=== PATIENT | female | born 1970 | race Caucasian/White ===

== ENCOUNTER → 2019-05-11 11:25 | Outpatient (BNVA) | payer SELFPAY | PROVIDERS: Family Provider Family Medicine; PCP Family Medicine; Visit Provider Family Medicine | DX: R60.0 Localized edema (principal); R53.83 Other fatigue | CPT/HCPCS: 80053; 84443 ==

== ENCOUNTER 2019-08-07 09:53 | Emergency (ER) | payer SELFPAY ==
--- NOTE | 2019-08-07 10:11 | W.ED.GENADLT ---
HPI - General Adult General: Chief complaint: Chest Pain Stated complaint: JAW PAIN, TIRED Time Seen by Provider: 08/07/19 10:00 Source: patient Mode of arrival: EMS Limitations: no limitations History of Present Illness: HPI narrative: sudden onset jaw pain; chest pressure, and feeling tired Onset (ago): hour(s) (1 hour) Severity scale (1-10): 9 Associated symptoms: Reports palpitations Review of Systems General: Reports: 10 or more systems reviewed and unremarkable except in HPI and below Const: Denies: fever(s) or body aches Card: Reports: palpitations PFS ED PFSH: Medical History Anxiety and depression Chronic GERD Essential hypertension Hyperlipidemia Statin intolerance Surgical History H/O knee surgery History of appendectomy Family History Other Adopted Social History Smoking and tobacco status: never smoked Alcohol intake: never Physical Exam Const: COMMON NORMALS: no acute distress, patient oriented x3, no limitations and alert GENERAL APPEARANCE: cooperative and comfortable ORIENTATION/CONSCIOUSNESS: Yes awake, Yes oriented to person, Yes oriented to place and Yes oriented to time HENMT: COMMON NORMALS: normocephalic, atraumatic, external ears normal, EAC's normal, TM's normal bilaterally and Normal external nose present HEAD & SCALP: normal to inspection, normocephalic and atraumatic FACE & SINUS: normal facial exam, sinuses nontender and face symmetric NOSE: Normal external nose present, Normal nares present and No nasal discharge present EXTERNAL EAR: Yes external ears normal EXTERNAL AUDITORY CANAL: EAC's normal TYMPANIC MEMBRANE: TM's normal bilaterally MOUTH: Normal oral and palatal mucosa present, lip normal and tongue normal THROAT: posterior oropharynx normal, tonsils normal and uvula midline Eye: COMMON NORMALS: Equal, round and reactive pupils present, EOMs intact bilaterally and conjunctivae normal GENERAL EYE: appearance normal, both eyes and all related structures and normal light reflex EYELID: eyelids normal CONJUNCTIVA: Yes conjunctivae normal PUPIL: Yes Equal, round and reactive pupils present EOM: Yes EOM abnormal DIRECT OPHTHALMOSCOPY: Yes normal light reflex Neck/C-Spine: COMMON NORMALS: full ROM, no lymphadenopathy, supple, no meningeal signs, no JVD and Thyroid normal GENERAL: Yes normal visual inspection THYROID: Thyroid normal CERVICAL SPINE: Yes cervical ROM normal and Yes normal cervical lordosis Lymph: LYMPHATIC: no lymphadenopathy noted Chest: COMMONS NORMALS: normal inspection of the chest and normal palpation of entire chest wall Resp: COMMON NORMALS: normal respiratory effort, No retractions and clear to auscultation bilaterally AUSCULTATION: clear to auscultation bilaterally Cardio: COMMON NORMALS: no JVD, regular rate, regular rhythm, S1 normal heart sound present, S2 normal heart sound present, No gallops present (Cardio), No clicks present (Cardio), No murmurs present (Cardio), No rub (Cardio) and Peripheral pulses 2+ throughout RATE: regular rate RHYTHM: regular rhythm HEART SOUNDS: S1 normal heart sound present and S2 normal heart sound present PERIPHERAL PULSES: Peripheral pulses 2+ throughout GI: COMMON NORMALS: Normal to inspection, nondistended, normoactive bowel sounds present, Soft to palpation, non-tender and no masses PALPATION: Yes Soft to palpation : COMMON NORMALS: Yes no CVA tenderness and Yes normal external appearance BLADDER/KIDNEY EXAM: Yes no CVA tenderness Back/Pelvis: COMMON NORMALS: no CVA tenderness, thoracic and lumbar spine normal to inspection, no thoracic nor lumbar tenderness and thoraco-lumbar ROM normal Extremity: COMMON NORMALS: normal to inspection, full ROM, capillary refill normal, no joint enlargement, no clubbing, cyanosis or edema, no calf tenderness and no pedal edema GENERAL: Yes normal exam except as noted Neuro: COMMON NORMALS: patient oriented x3, moves all extremities, no focal motor deficits, no sensory deficits noted and gait normal SENSORIUM/ORIENTATION: Yes alert, Yes oriented to person, Yes oriented to place and Yes oriented to time MENINGEAL SIGNS: Yes no meningeal signs Psych: COMMON NORMALS: mental status grossly normal, Normal thought process present, cooperative, normal affect, speech normal and activity/motor behavior normal SPEECH: Yes normal speech THOUGHT PROCESS: Normal thought process present Skin: COMMON NORMALS: no rashes or lesions noted, no wounds and turgor normal GENERAL SKIN EXAM: no rashes or lesions noted and turgor normal Course ED course: Pt states about 1 hour ago while opening her mail she had a sudden onset of jaw pain, chest pressure, and general ill feeling. The pain was at a 9/10 and after the initial pain that last 4 to 5 minutes, she felt very tired after. She still states she is feeling heavy all over and tired. Will do cardiac work up. Pt has been under more stress than normal with a divorce that was finalized 2 days ago and current times not allowing her children to be present. Reevaluation(s): Reevaluation #1: EKG unremarkable. CXR wnl. Awaiting first trop. Time: 11:42 Reevaluation #2: Second ekg is NSR; pain zero. Awaiting second trop. If normal we will proceed with DC and have follow up with heart care services. Time: 13:11 Reevaluation #3: Second trop is negative. Will proceed with DC. Follow up with PCP as well. Time: 13:55 Vital Signs: Vital signs: Vital Signs Temperature 98.2 F 08/07/19 10:12 Pulse Rate 81 08/07/19 11:40 Respiratory Rate 15 08/07/19 11:40 Blood Pressure 163/94 08/07/19 10:12 Pulse Oximetry 94 08/07/19 11:40 MDM - General Adult Lab Data: Labs: Lab Results 08/07/19 08/07/19 08/07/19 Range/Units 10:31 10:31 10:31 WBC 7.4 (4.0-10.0) 10^3/ uL RBC 4.71 (4.1-5.3) 10^6/u L Hgb 12.8 (11.5-15.3) g/dL Hct 40.2 (37.0-47.0) % MCV 85.4 (81-99) fL MCH 27.2 L (28.0-34.0) pg MCHC 31.8 (30.0-36.0) g/dL RDW 14.0 (12.1-15.1) % Plt Count 358 (130-400) 10^3/c mm MPV 9.6 (7.4-10.4) fL Neut % (Auto) 55.4 % Lymph % (Auto) 31.0 % [place] % (Auto) 7.7 % Eos % (Auto) 4.5 % Baso % (Auto) 1.1 % Neut # (Auto) 4.1 (1.8-7.7) 10^3/u L Lymph # (Auto) 2.3 (0.8-4.8) 10^3/u L [place] # (Auto) 0.6 (0.2-0.9) 10^3/u L Eos # (Auto) 0.3 (0.0-0.8) 10^3/u L Baso # (Auto) 0.1 (0.0-0.1) 10^3/u L Nucleated RBC % (a uto) 0 % Nucleated RBCs # 0.0 /100WBC Sodium 135 L (136-145) mmol/L Potassium 4.3 (3.5-5.1) mmol/L Chloride 101 (98-107) mmol/L Carbon Dioxide 23 (22-29) mmol/L Anion Gap 15.3 (5-19) BUN 11 (6-20) mg/dL Creatinine 0.8 (0.5-0.9) mg/dL GFR Calculation 76.2 L (90-130) mL/min Glucose 111 (65-115) mg/dL Calculated Osmolal ity 277 L (285-295) mOsm/k g Calcium 9.2 (8.5-10.5) mg/dL Total Bilirubin 0.4 (0.15-1.2) mg/dL AST 15 (0-32) U/L ALT 12 (0-33) U/L Alkaline Phosphata se 53 (35-105) IU/L Troponin T Baselin e 6 (0-10) ng/L Troponin T 120 Min [place] (0-10) ng/L Delta Troponin T (0-10) ABS# Total Protein 6.5 L (6.6-8.7) g/dL Albumin 4.2 (3.5-5.2) g/dL Globulin 2.3 (1.3-4.6) g/dL 08/07/19 Range/Units 12:48 WBC (4.0-10.0) 10^3/ uL RBC (4.1-5.3) 10^6/u L Hgb (11.5-15.3) g/dL Hct (37.0-47.0) % MCV (81-99) fL MCH (28.0-34.0) pg MCHC (30.0-36.0) g/dL RDW (12.1-15.1) % Plt Count (130-400) 10^3/c mm MPV (7.4-10.4) fL Neut % (Auto) % Lymph % (Auto) % [place] % (Auto) % Eos % (Auto) % Baso % (Auto) % Neut # (Auto) (1.8-7.7) 10^3/u L Lymph # (Auto) (0.8-4.8) 10^3/u L [place] # (Auto) (0.2-0.9) 10^3/u L Eos # (Auto) (0.0-0.8) 10^3/u L Baso # (Auto) (0.0-0.1) 10^3/u L Nucleated RBC % (a uto) % Nucleated RBCs # /100WBC Sodium (136-145) mmol/L Potassium (3.5-5.1) mmol/L Chloride (98-107) mmol/L Carbon Dioxide (22-29) mmol/L Anion Gap (5-19) BUN (6-20) mg/dL Creatinine (0.5-0.9) mg/dL GFR Calculation (90-130) mL/min Glucose (65-115) mg/dL Calculated Osmolal ity (285-295) mOsm/k g Calcium (8.5-10.5) mg/dL Total Bilirubin (0.15-1.2) mg/dL AST (0-32) U/L ALT (0-33) U/L Alkaline Phosphata se (35-105) IU/L Troponin T Baselin e (0-10) ng/L Troponin T 120 Min [place] 6.00 (0-10) ng/L Delta Troponin T 0 (0-10) ABS# Total Protein (6.6-8.7) g/dL Albumin (3.5-5.2) g/dL Globulin (1.3-4.6) g/dL Imaging Data^: CXR: Radiologist's impression: [address] [address] XRay Report Signed Patient: Yenni Martinez Unit #: [id number] : 1970 Age/Sex: 49 / F ADM Date: 08/07/19 Loc: ER Room/Bed: Attending Dr: Ordering Provider/Ordering MD: Liz Gusman NP Date of Service: 08/07/19 Procedure(s): XR chest 1V portable [id number] Accession Number(s): [id number] Report Number: [id number] PROCEDURE INFORMATION: Exam: XR Chest, 1 View Exam date and time: 08/07/2019 10:50 AM Age: 49 years old Clinical indication: Other: Chest and jaw pain; Additional info: Cp TECHNIQUE: Imaging protocol: XR of the chest Views: 1 view. COMPARISON: No relevant prior studies available. FINDINGS: Lungs: Unremarkable. No consolidation. Pleural space: Unremarkable. No pleural effusion. No pneumothorax. Heart/Mediastinum: Unremarkable. No cardiomegaly. Bones/joints: Unremarkable. XR/XR chest 1V portable [id number] IMPRESSION: No acute findings. Dictated By: Armin Mejia MD Signed By: Armin Mejia MD Signed Date/Time: 08/07/19 1140 DD/ 1138 Discharge Plan Discharge Patient Disposition: Home, Self-Care Clinical Impression: Essential hypertension, Atypical chest pain Condition: Stable Prescriptions: New Vistaril 50 mg capsule 50 mg PO Q8H PRN (Reason: anxiety) Qty: 14 RF: 0 No Action metoprolol tartrate 25 mg tablet 25 mg PO BID Qty: 60 RF: 5 bupropion HCl [Wellbutrin SR] 200 mg tablet sustained-release 12 hr 200 mg PO BID Qty: 60 RF: 5 buspirone 10 mg tablet 20 mg PO TID Qty: 180 RF: 1 Referrals: Kalpana Wilkins MD [Physician] - (atypical CP ) Debbie Vieyra DO [Primary Care Provider] - Discharge Diet: Usual diet Discharge Activity: Increase activity as tolerated Activity Restrictions/Additional Instructions: Return to ER immediately if worsening or return of symptoms. Coding Level of Care Code ED Pump Servicer Supervisor for Chg Fwd Exam Comprehensive
[2019-08-07 10:12] VITALS: BP 163/94; PULSE 93; RESP 16; TEMP 36.8; O2SAT 97; BMI 41.6
--- NOTE | 2019-08-07 10:20 | ECG_ITS ---
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 Measurements Intervals [place] Rate: 93 P: 33 VA: 139 QRS: 13 QRSD: 95 T: 30 QT: 342 QTc: 426 Interpretive Statements SINUS RHYTHM No previous ECG available for comparison Electronically Signed On 08-07-2019 21:51:14 CDT by Kalpana Wilkins M.D. [id number]
--- NOTE | 2019-08-07 10:20 | XRR_ITS ---
PROCEDURE INFORMATION: Exam: XR Chest, 1 View Exam date and time: 08/07/2019 10:50 AM Age: 49 years old Clinical indication: Other: Chest and jaw pain; Additional info: Cp TECHNIQUE: Imaging protocol: XR of the chest Views: 1 view. COMPARISON: No relevant prior studies available. FINDINGS: Lungs: Unremarkable. No consolidation. Pleural space: Unremarkable. No pleural effusion. No pneumothorax. Heart/Mediastinum: Unremarkable. No cardiomegaly. Bones/joints: Unremarkable. XR/XR chest 1V portable [id number] IMPRESSION: No acute findings.
[2019-08-07 10:31] VITALS: PULSE 94; RESP 16; O2SAT 96
[2019-08-07] MEDS: aspirin 325 mg Tablet PO (10:34)
[2019-08-07 10:36] LABS: Basophils # 0.1 10^3/uL (0.0-0.1); Basophils % 1.1 %; Eosinophils # 0.3 10^3/uL (0.0-0.8); Eosinophils % 4.5 %; Hematocrit 40.2 % (37.0-47.0); Hemoglobin 12.8 g/dL (11.5-15.3); Lymphocytes # 2.3 10^3/uL (0.8-4.8); Mean Corpuscular HGB Conc 31.8 g/dL (30.0-36.0); Mean Corpuscular Hemoglobin 27.2 pg (28.0-34.0); Mean Corpuscular Volume 85.4 fL (81-99); Mean Platelet Volume 9.6 fL (7.4-10.4); Monocytes # 0.6 10^3/uL (0.2-0.9); Monocytes % 7.7 %; Neutrophils # 4.1 10^3/uL (1.8-7.7); Neutrophils % 55.4 %; Nucleated Red Blood Cells % 0 %; Platelet Count 358 10^3/cmm (130-400); Red Blood Count 4.71 10^6/uL (4.1-5.3); White Blood Count 7.4 10^3/uL (4.0-10.0)
[2019-08-07 10:50] LABS: Alanine Aminotransferase 12 U/L (0-33); Albumin Level 4.2 g/dL (3.5-5.2); Alkaline Phosphatase 53 IU/L (35-105); Anion Gap 15.3 (5-19); Aspartate Amino Transferase 15 U/L (0-32); Blood Urea Nitrogen 11 mg/dL (6-20); Calcium 9.2 mg/dL (8.5-10.5); Carbon Dioxide 23 mmol/L (22-29); Chloride 101 mmol/L (98-107); Globulin 2.3 g/dL (1.3-4.6); Glomerular Filtration Rate 76.2 mL/min (90-130); Glucose 111 mg/dL (65-115); Osmolality Calculated 277 mOsm/kg (285-295); Potassium 4.3 mmol/L (3.5-5.1); Sodium 135 mmol/L (136-145); Total Bilirubin 0.4 mg/dL (0.15-1.2); Total Protein 6.5 g/dL (6.6-8.7)
[2019-08-07 10:52] LABS: Troponin(5th) Baseline 6 ng/L (0-10)
[2019-08-07 11:39] VITALS: PULSE 81; RESP 12; O2SAT 94
[2019-08-07 11:40] VITALS: PULSE 81; RESP 15; O2SAT 94
--- NOTE | 2019-08-07 12:20 | ECG_ITS ---
[facility] Test Date: 2019-08-07 Pat Name: Yenni Martinez Department: Room: Gender: Female Warp Doffer: : 1970 Requested By: Liz Gusman Order Number: [id number] Andre MD: Kalpana Wilkins M.D. Measurements Intervals [place] Rate: 85 P: 31 VA: 158 QRS: 22 QRSD: 96 T: 30 QT: 370 QTc: 442 Interpretive Statements SINUS RHYTHM Compared to ECG 08/07/2019 10:19:02 No significant changes Electronically Signed On 08-07-2019 21:52:30 CDT by Kalpana Wilkins M.D. [id number]
[2019-08-07 13:23] LABS: Troponin 5 2HR Delta 0 ABS# (0-10)
[2019-08-07 14:05] VITALS: BP 146/87; PULSE 89; RESP 15; O2SAT 95
== END 2019-08-07 14:05 | disposition home or self-care (01) ==
PROVIDERS: Emergency Provider Nurse Practitioner Family; PCP Family Medicine
DX: R07.89 Other chest pain (principal); I10 Essential (primary) hypertension; E78.5 Hyperlipidemia, unspecified
CPT/HCPCS: 12345; 36415; 71045; 80053; 84484; 85025; 93005; 99283

== ENCOUNTER → 2019-11-02 10:35 | Outpatient (BNVA) | payer SELFPAY | PROVIDERS: PCP Family Medicine; Visit Provider Nurse Practitioner Family | DX: J06.9 Acute upper respiratory infection, unspecified (principal) | CPT/HCPCS: 87635 ==

== ENCOUNTER → 2019-12-09 14:47 | Outpatient (BNVA) | payer OTHER, SELFPAY | PROVIDERS: PCP Family Medicine; Visit Provider Nurse Practitioner Family | DX: Z11.59 Encounter for screening for other viral diseases (principal); J06.9 Acute upper respiratory infection, unspecified; R43.0 Anosmia | CPT/HCPCS: 87635 ==

== ENCOUNTER → 2020-03-17 08:42 | Outpatient (BNVA) | payer SELFPAY | PROVIDERS: PCP Family Medicine; Visit Provider Family Medicine | DX: D50.9 Iron deficiency anemia, unspecified (principal); I10 Essential (primary) hypertension; R06.00 Dyspnea, unspecified | CPT/HCPCS: 80053; 80061; 83550; 85025 ==

== ENCOUNTER → 2020-03-18 08:57 | Outpatient (BNVA) | payer SELFPAY | PROVIDERS: PCP Family Medicine; Visit Provider Family Medicine | DX: D50.9 Iron deficiency anemia, unspecified (principal); I10 Essential (primary) hypertension; R06.00 Dyspnea, unspecified | CPT/HCPCS: 82607 ==

== ENCOUNTER → 2020-09-01 13:14 | Outpatient (BNVA) | payer OTHER, SELFPAY | PROVIDERS: PCP Family Medicine; Visit Provider Emergency Medicine | DX: Z20.822 Contact with and (suspected) exposure to COVID-19 (principal) | CPT/HCPCS: 87635 ==

== ENCOUNTER → 2020-12-05 15:24 | Outpatient (BNVA) | payer SELFPAY | PROVIDERS: PCP Family Medicine; Visit Provider Family Medicine | DX: Z01.419 Encounter for gynecological examination (general) (routine) without abnormal findings (principal); R10.2 Pelvic and perineal pain | CPT/HCPCS: 88175 ==

== ENCOUNTER 2021-08-23 14:55 | Outpatient (CLI) | payer BC, SELFPAY ==
--- NOTE | 2021-08-23 15:06 | MM_ITS ---
WS: [id number] BILATERAL 3D TOMOSYNTHESIS DIGITAL SCREENING MAMMOGRAPHY WITH CAD CLINICAL INFORMATION: left breast mass HISTORY: Screening mammogram. Palpable lump per ordering physician. Patient cannot feel lump. COMPARISON: None. TECHNIQUE: Bilateral CC and MLO views. FINDINGS: Scattered fibroglandular densities bilaterally. A few incidental punctate calcifications. Asymmetric density along the posterior nipple line only seen on the ML view. This measures approximately 10 mm a nd considering no comparison images recommend further evaluation with LEFT diagnostic mammography wit h spot compression views and ultrasound if persistent. Normal RIGHT breast. MM/[place] [id number] IMPRESSION: BI-RADS: 0-Incomplete: Need additional imaging evaluation FOLLOW UP: Need Additional Imaging Recommend LEFT breast diagnostic mammography with spot compression views of the asymmetric density and ultrasound if persistent.
== END 2021-08-23 14:56 | disposition home or self-care (01) ==
PROVIDERS: PCP Family Medicine; Visit Provider Family Medicine
DX: N63.20 Unspecified lump in the left breast, unspecified quadrant (principal)
CPT/HCPCS: 77062

== ENCOUNTER 2021-09-20 14:41 | Outpatient (CLI) | payer BC, SELFPAY ==
--- NOTE | 2021-09-20 14:47 | MM_ITS ---
WS: [id number] LEFT 3D TOMOSYNTHESIS DIGITAL MAMMOGRAPHY WITH CAD CLINICAL INFORMATION: left breast mass COMPARISON: None. TECHNIQUE: 2 views of the left breast were obtained. FINDINGS: Scattered fibroglandular densities of the left breast. Persistent 10 mm asymmetric density along the posterior nipple line partially compresses out. Ultrasound performed and described below. ULTRASOUND BREAST LEFT TECHNIQUE: Ultrasound left breast focused area of concern. CLINICAL INFORMATION: left breast mass FINDINGS: Ultrasound LEFT breast about the areola. Ductal ectasia deep to the areola. No intraductal lesions. N o suspicious cystic or solid lesions to target for biopsy. Tiny incidental simple cyst measuring 6 x 3 x 5 mm at the 3:00 position at the nipple. This likely corresponds to the mammographic density. MM/[place] [id number] IMPRESSION: BI-RADS: 2-Benign FOLLOW UP: 1 Year Follow-up Recommend return to annual screening mammography.
== END 2021-09-20 14:42 | disposition home or self-care (01) ==
LOC: RAD 14:42
PROVIDERS: PCP Family Medicine; Visit Provider Family Medicine
DX: N63.20 Unspecified lump in the left breast, unspecified quadrant (principal)
CPT/HCPCS: 76642; 77061

== ENCOUNTER → 2021-10-09 15:39 | Outpatient (BNVA) | payer BC, SELFPAY | PROVIDERS: PCP Family Medicine; Visit Provider Obstetrics & Gynecology | DX: R10.2 Pelvic and perineal pain (principal) | CPT/HCPCS: 76830 ==

== ENCOUNTER 2021-11-14 13:08 | Observation (INO) | payer BC, SELFPAY ==
[2021-11-13 12:11] VITALS: BMI 41.6
[2021-11-14] VITALS (24 sets, daily range): BP systolic 106–162; BP diastolic 56–90; PULSE 59–108; RESP 10–18; TEMP 36.2–36.9; O2SAT 91–100; BMI 41.6
[2021-11-14] MEDS: acetaminophen 1,000 MG/100 ML PIGGYBACK 400 MG IV (08:48)
[2021-11-14] MEDS: scopolamine 1.5 Patch 1 PATCH TRANSDERMA (08:53)
[2021-11-14] MEDS: CELEcoxib 200 mg Capsule 400 MG PO (08:55)
[2021-11-14] MEDS: phenazopyridine 100 mg Tablet 200 MG PO ×3 (08:56→20:48)
[2021-11-14] MEDS: gabapentin 300 mg Capsule PO (08:57)
[2021-11-14] MEDS: sodium chloride 0.9% 1,000 ML 30 ML IV (09:01)
[2021-11-14] MEDS: ondansetron 2 mg/ML SDV 2 mL 4 MG IVP ×2 (09:10→13:02)
[2021-11-14 09:27] LABS: Basophils # 0.1 10^3/uL (0.0-0.1); Basophils % 0.6 %; Eosinophils # 0.4 10^3/uL (0.0-0.8); Eosinophils % 4.1 %; Hemoglobin 13.1 g/dL (11.5-15.3); Lymphocytes # 2.3 10^3/uL (0.8-4.8); Lymphocytes % 25.9 %; Mean Corpuscular HGB Conc 33.6 g/dL (30.0-36.0); Mean Corpuscular Hemoglobin 29.7 pg (28.0-34.0); Mean Corpuscular Volume 88.4 fl (81-99); Mean Platelet Volume 10.6 fL (7.4-10.4); Monocytes # 0.7 10^3/uL (0.2-0.9); Monocytes % 7.9 %; Neutrophils # 5.51 10^3/uL (1.8-7.7); Neutrophils % 61.2 %; Nucleated Red Blood Cells % 0 %; Platelet Count 310 10^3/cmm (130-400); Red Blood Count 4.41 10^6/uL (4.1-5.3); Red Cell Distribution Width 12.6 % (12.1-15.1)
--- NOTE | 2021-11-14 09:51 | ANES.PREANE2 ---
Pre-Anesthetic Assessment Height/Weight: Height 1.6 m Weight 106.594 kg Temp Pulse Resp BP Pulse Ox O2 Del Method 98.5 F 76 16 162/85 98 11/14/21 08:00 11/14/21 08:00 11/14/21 08:00 11/14/21 08:00 11/14/21 08:00 11/14/21 08:06 Preop Diagnosis: uterine prolapse, pelvic pain, anemia Operation Date: 11/14/21 09:20 Proposed Procedures p Laparoscopic assisted vaginal hysterectomy, bilateral salpingo-oophorectomy 14591, Anterior and posterior repair 77151,N80.9,R10.2(Not Applicable) - Viky Soria MD s Anterior Repair(Not Applicable) - Viky Soria MD s Posterior Repair(Not Applicable) - Viky Soria MD s Laparoscopic Salpingo Oophorectomy(Bilateral) - Viky Soria MD Familial anesthetic complications: none Was Beta Diane taken within 24 hours: Yes Was Clonidine taken within 24 hours: N/A Last intake: Intake Last Liquid Date 11/13/21 Last Liquid Time 21:30 Last Solid Date 11/13/21 Last Solid Time 21:30 Social No alcohol and No tobacco Exam alert, oriented x 3, clear to auscultation bilaterally and regular rate & rhythm Airway Submandibular: within normal limits Cervical ROM: within normal limits Mallampati: Class III Dentition: full Comments: Comments: limited mouth opening CV/HEM Anemia and Hypertension GI Gastroesophageal Reflux Disease Metabolic Morbid Obesity Neuropsych Anxiety and Depression Anesthetic Plan ASA status: 3 Anesthesia: General Medications/Allergies Home Medications Medication Instructions Recorded Confirmed Last Taken Type fluticasone propionate 50 2 spray intranasal DAILY #15.8 mL 03/17/20 11/14/21 11/13/21 Rx mcg/actuation nasal spray,suspension (Flonase Allergy Relief) omeprazole 20 mg capsule,delayed 20 mg PO BID 03/17/20 11/14/21 11/13/21 History release buspirone 10 mg tablet See Rx Instructions .Route 06/26/21 11/14/21 11/13/21 Rx .COMPLEX #180 tabs metoprolol tartrate 25 mg tablet See Rx Instructions .Route 06/26/21 11/14/21 11/14/21 06:00 Rx .COMPLEX #60 tabs escitalopram oxalate 20 mg tablet 20 mg PO DAILY 10/19/21 11/14/21 11/13/21 History (Lexapro) Allergies Allergy/AdvReac Type Severity Reaction Status Date / Time Aifmwho-PTZ-WtS Reductase Allergy ADR-Nausea Verified 11/13/21 12:14 Inhibitor Current Medications Generic Name Dose Route Start Last Admin Trade Name Freq PRN Reason Stop Dose Admin Sodium Chloride 1,000 mls @ 30 mls/hr 11/14/21 08:00 11/14/21 09:01 Sodium Chloride 0.9% IV 11/15/21 07:59 30 mls/hr .Q24H BYRON Administration Ondansetron HCl 4 mg 11/14/21 07:51 11/14/21 09:10 Ondansetron 2 Mg/Ml Sdv 2 Ml IVP 4 mg Q5M PRN Administration NAUSEA AND VOMITING PFSH Anesthesia Medical History Anxiety and depression Chronic GERD Endometriosis Essential hypertension Hyperlipidemia Statin intolerance Surgical History H/O knee surgery History of appendectomy Family History Other Adopted Social History Smoking and tobacco status: never smoked Data Anesthesia : 11/14/21 08:35 11/14/21 08:35 Short CBC 11/14/21 Range/Units 08:35 WBC 9.0 (4.0-10.0) 10^3/uL Hgb 13.1 (11.5-15.3) g/dL Hct 39.0 (37.0-47.0) % MCV 88.4 (81-99) fl Plt Count 310 (130-400) 10^3/cmm Neut % (Auto) 61.2 % Neut # (Auto) 5.51 (1.8-7.7) 10^3/uL Cardiac Studies: No Data to Display
[2021-11-14 09:53] LABS: Blood Urea Nitrogen 11 mg/dL (6-20); Calcium 8.6 mg/dL (8.5-10.5); Carbon Dioxide 24 mmol/L (22-29); Chloride 101 mmol/L (98-107); Glomerular Filtration Rate 105.4 mL/min (90-130); Glucose 102 mg/dL (65-115); Osmolality Calculated 282 mOsm/kg (285-295); Sodium 136 mmol/L (136-145)
--- NOTE | 2021-11-14 09:53 | W.PM.OPSUD ---
Surgery/Procedure H&P Update DATE OF PROCEDURE: November 14, 2021 DATE H&P PERFORMED: 11/09/21 H&P UPDATE INFORMATION: I have reviewed H&P completed within last 30 days, I have examined patient prior to procedure and No changes to prior documentation PREOP DIAGNOSIS: uterine prolapse, pelvic pain, anemia PLANNED PROCEDURE: Operation Date: 11/14/21 09:20 Proposed Procedures p Laparoscopic assisted vaginal hysterectomy, bilateral salpingo-oophorectomy 55271, Anterior and posterior repair 41668,N80.9,R10.2(Not Applicable) - Viky Soria MD s Anterior Repair(Not Applicable) - Viky Soria MD s Posterior Repair(Not Applicable) - Viky Soria MD s Laparoscopic Salpingo Oophorectomy(Bilateral) - Viky Soria MD
[2021-11-14] MEDS: ceFAZolin 2,000 MG in sodium chloride 0.9% (plus) 50 ML 100 MG IV ×2 (10:05→18:12)
[2021-11-14] MEDS: vasopressin 20 unit/mL INJ (11:16)
--- NOTE | 2021-11-14 12:02 | P.OP_ITS ---
Operative Report Date of procedure: November 14, 2021 Pre-op diagnosis: Preop Diagnosis uterine prolapse, pelvic pain, anemia Post-op diagnosis: same Post-op findings: 10 week sized uterus, normal appearing tubes and ovaries, loose perineal body Procedure done: LAVH, BSO, perineorrhaphy, cystoscopy Specimens removed/disposition: uterus, tubes and ovaries to pathology Surgeon: Viky Soria Anesthesia: General Estimated blood loss (mL): 200 IV fluids (mL): 1,100 Urine output (mL): 150 Complications: none Condition: stable Disposition: PACU Procedure: The patient was taken to the operating room where general anesthesia was administered and found to be adequate. She was prepped and draped in the normal sterile fashion in the dorsal lithotomy position in [facility]. The patient has a tiny urethra and a 12 rae catheter was placed. A weighted speculum was placed into the vagina and the anterior lip of the cervix was grasped with a single tooth tenaculum. The Zumi uterine manipulator was placed. The weighted speculum was removed. The gloves were changed and attention was turned to the abdomen. A 5 mm supraumbilical incision was made. Using a 5 mm port with the camera, the port was placed into the abdomen. The abdomen was insufflated. Two low, lateral 5 mm ports were placed on the left and right under direct v isualization from the camera. The right tube was grasped and elevated. Using the laparoscopic cautery, the infundibulopelvic ligament was cauterized inferior to the ovary and tube. This was followed down to the uteroovarian ligaments as well as the round ligaments. This was performed the same way on the left. Attention was then turned to the vaginal portion of the procedure. The weighted speculum was placed into the vagina. The zumi manipulator was removed. The single tooth tenaculum was removed and replaced with the kelly's tenaculum. 10 mL of dilute Pitressin was injected at the vesicovaginal junction. A circumferential incision was made at the vesicovaginal junction and the vaginal mucosa reflected cephalad. The posterior peritoneum was entered sharply with the Metzenbaum scissors and the long weighted speculum replaced. Using the Stacey clamps the uterosacral ligaments were clamped cut and suture- ligated. The anterior peritoneum was entered sharply with the metzenbaum scissors. Then sequentially the uterine arteries and cardinal ligaments were clamped cut and suture-ligated. A single-tooth tenaculum was used to deliver the uterus. The remaining segement of the utero-ovarian ligaments were clamped cut and suture-ligated bilaterally and the specimen was removed. There was good hemostasis with only mild bleeding from the cuff. The peritoneum was closed with a pursestring using 2-0 Vicryl. The vaginal cuff was closed with 0 Vicryl in a running locked pattern incorporating the uterosacral ligaments into the lateral aspects of the vaginal cuff. Attention was then turned to the perineorrhphy. Allis clamps were placed on the posterior fourchette. A 3 cm wedge of the fourchette was removed. This was repaired in the usual fashion with O-vicryl. The Rae catheter was removed and the cystoscope advanced into the bladder. The patient was given pyridium and bilateral spill was noted. There were no injuries or deficits noted in the bladder. The cystoscope was removed and the Rae was replaced. Vaginal packing was placed for good hemostasis. The gloves and gowns were changed and attention was turned to the abdomen. The ports were closed with 3-0 monocryl with skin glue. The patient tolerated the procedure well. Sponge lap and needle counts were correct x3. She was taken to the recovery room in stable condition.
--- NOTE | 2021-11-14 12:33 | W.PM.OPSUD ---
Surgery/Procedure H&P Update DATE OF PROCEDURE: November 14, 2021 DATE H&P PERFORMED: 11/09/21 PREOP DIAGNOSIS: uterine prolapse, pelvic pain, anemia PLANNED PROCEDURE: Operation Date: 11/14/21 09:20 Proposed Procedures p Laparoscopic assisted vaginal hysterectomy, bilateral salpingo-oophorectomy 10434, Anterior and posterior repair 33931,N80.9,R10.2(Not Applicable) - Viky Soria MD s Anterior Repair(Not Applicable) - Viky Soria MD s Posterior Repair(Not Applicable) - Viky Soria MD s Laparoscopic Salpingo Oophorectomy(Bilateral) - Viky Soria MD Related Problem List Diagnoses (1) Uterine prolapse: (2) Pelvic pain:
--- NOTE | 2021-11-14 12:35 | PC.NURSE ---
oral airway out.
[2021-11-14] MEDS: fentaNYL 50 mcg/mL INJ 2mL IVP (12:42)
[2021-11-14] MEDS: BuSPIRONE 10 mg Tablet 20 MG PO ×2 (14:44→20:48)
[2021-11-14] MEDS: ketorolac 30 mg/mL INJ IVP ×2 (14:45→20:49)
--- NOTE | 2021-11-14 15:18 | ANE.PACU2 ---
Inpatient post-anesthesia follow up: Airway intact: Yes Vital signs: Temperature 97.4 F Pulse Rate 78 Respiratory Rate 16 Blood Pressure 119/68 Pulse Oximetry 93 Oxygen Delivery Me thod Nasal Cannula Oxygen Flow Rate 2 Fraction of Inspir ed Oxygen Hydration adequate: Yes Nausea and vomiting: No Pain level: 3 Mental status: Baseline
[2021-11-14] MEDS: dextrose 5%-lactated ringers 1,000 ML 125 ML IV (16:10)
[2021-11-14] MEDS: HYDROcodone-acetaminophen 5-325 mg Tablet PO ×2 (16:18→22:22)
[2021-11-14] MEDS: docusate sodium 100 mg Capsule PO (18:12)
--- NOTE | 2021-11-14 19:56 | PC.NURSE ---
PT HAS 3 SMALL INCISIONS, ONE AT UMBILIOUS AND ONE ON EACH SIDE OF LOWER ABD, ALL ARE INTACT WITH DERMABOND PRESENT NO DRAINAGE NOTED.
[2021-11-14] MEDS: metoprolol tartrate 25 mg Tablet PO (20:49)
[2021-11-14] MEDS: escitalopram 10 mg Tablet 20 MG PO (20:49)
[2021-11-15] MEDS: dextrose 5%-lactated ringers 1,000 ML 125 ML IV (00:47)
[2021-11-15] MEDS: ceFAZolin 2,000 MG in sodium chloride 0.9% (plus) 50 ML 100 MG IV (02:30)
[2021-11-15] MEDS: ketorolac 30 mg/mL INJ IVP ×2 (02:30→09:00)
[2021-11-15 02:35] VITALS: BP 125/79; PULSE 87; RESP 18; O2SAT 91
[2021-11-15] MEDS: HYDROcodone-acetaminophen 5-325 mg Tablet PO (04:44)
[2021-11-15 04:51] VITALS: BP 120/77; PULSE 76; TEMP 36.6; O2SAT 94
[2021-11-15 04:56] LABS: Hematocrit 34.5 % (37.0-47.0); Hemoglobin 11.5 g/dL (11.5-15.3); Mean Corpuscular HGB Conc 33.3 g/dL (30.0-36.0); Mean Corpuscular Volume 90.1 fl (81-99); Mean Platelet Volume 9.9 fL (7.4-10.4); Platelet Count 259 10^3/cmm (130-400); Red Blood Count 3.83 10^6/uL (4.1-5.3); Red Cell Distribution Width 12.9 % (12.1-15.1); White Blood Count 14.6 10^3/uL (4.0-10.0)
--- NOTE | 2021-11-15 06:21 | PM.DCS ---
Discharge Providers Date of Admission: 11/14/21 13:08 Date of Discharge: November 15, 2021 Attending Provider at Admission: Viky Soria MD Attending Provider at Discharge: Viky Soria MD Primary Care Provider: Abel Mejia DO Diagnoses at Discharge Discharge Diagnosis (1) Uterine prolapse: Status: Acute (2) Pelvic pain: Status: Acute Reason for Visit Reason for Visit: endometriosis, unspecified Hospital Course Hospital Course The patient was admitted for surgery. She had LAVH, BSO, cystoscopy, perineorrhaphy. She did well postoperatively and was ready for discharge on day #1. Physical Exam Narrative: The patient has done well overnight. Pain is well controlled. No concerns. Const: COMMON NORMALS: no acute distress, patient oriented x3, no limitations, healthy appearing, alert and well nourished GENERAL APPEARANCE: cooperative, comfortable, well kempt and well developed ORIENTATION/CONSCIOUSNESS: Yes awake, Yes oriented to person, Yes oriented to place and Yes oriented to time Resp: COMMON NORMALS: normal respiratory effort EFFORT & INSPECTION: Yes able to speak in complete sentences GI: COMMON NORMALS: Soft to palpation and non-tender PALPATION: Yes Soft to palpation Extremity: COMMON NORMALS: no calf tenderness Neuro: COMMON NORMALS: patient oriented x3 SENSORIUM/ORIENTATION: Yes alert, Yes oriented to person, Yes oriented to place and Yes oriented to time Psych: APPEARANCE: Yes well kempt Urinary Catheter Management: [place]: Cath Placed During This Visit: yes, but has since been removed by the nurse Reason for Continuing Indwelling Catheter: Decision to DC Catheter Urinary Catheter Date of Insertion: 11/14/21 Urinary Catheter Time of Insertion: 10:30 Date Urinary Catheter Removed: 11/15/21 Time Urinary Catheter Discontinued: 04:48 Discharge Data Studies Completed and Pending Pending at discharge Category Date Time Status ES surgery / GI images Routine Exams 11/14/21 09:22 Ordered Retype for Patiets ABO/Rh Routine Lab 11/14/21 09:16 Received Urine Culture Routine Lab 11/14/21 08:12 Received Pathology: Surgical [PTH] Routine Pth 11/14/21 11:20 Received Laboratory Results WBC 14.6 10^3/uL (4.0-10.0) H 11/15/21 04:45 RBC 3.83 10^6/uL (4.1-5.3) L 11/15/21 04:45 Hgb 11.5 g/dL (11.5-15.3) 11/15/21 04:45 Hct 34.5 % (37.0-47.0) L 11/15/21 04:45 MCV 90.1 fl (81-99) 11/15/21 04:45 MCH 30.0 pg (28.0-34.0) 11/15/21 04:45 MCHC 33.3 g/dL (30.0-36.0) 11/15/21 04:45 RDW 12.9 % (12.1-15.1) 11/15/21 04:45 Plt Count 259 10^3/cmm (130-400) 11/15/21 04:45 MPV 9.9 fL (7.4-10.4) 11/15/21 04:45 Neut % (Auto) 61.2 % 11/14/21 08:35 Lymph % (Auto) 25.9 % 11/14/21 08:35 [place] % (Auto) 7.9 % 11/14/21 08:35 Eos % (Auto) 4.1 % 11/14/21 08:35 Baso % (Auto) 0.6 % 11/14/21 08:35 Neut # (Auto) 5.51 10^3/uL (1.8-7.7) 11/14/21 08:35 Lymph # (Auto) 2.3 10^3/uL (0.8-4.8) 11/14/21 08:35 [place] # (Auto) 0.7 10^3/uL (0.2-0.9) 11/14/21 08:35 Eos # (Auto) 0.4 10^3/uL (0.0-0.8) 11/14/21 08:35 Baso # (Auto) 0.1 10^3/uL (0.0-0.1) 11/14/21 08:35 Nucleated RBC % (auto) 0 % 11/14/21 08:35 Nucleated RBCs # 0.0 /100WBC 11/14/21 08:35 Sodium 136 mmol/L (136-145) 11/14/21 08:35 Potassium 5.0 mmol/L (3.5-5.1) 11/14/21 08:35 Chloride 101 mmol/L (98-107) 11/14/21 08:35 Carbon Dioxide 24 mmol/L (22-29) 11/14/21 08:35 Anion Gap 16.0 (5-19) 11/14/21 08:35 BUN 11 mg/dL (6-20) 11/14/21 08:35 Creatinine 0.6 mg/dL (0.5-0.9) 11/14/21 08:35 GFR Calculation 105.4 mL/min (90-130) 11/14/21 08:35 Glucose 102 mg/dL (65-115) 11/14/21 08:35 Calculated Osmolality 282 mOsm/kg (285-295) L 11/14/21 08:35 Calcium 8.6 mg/dL (8.5-10.5) 11/14/21 08:35 Blood Type A Positive 11/14/21 08:35 Rho(D) Type Positive 11/14/21 08:35 Antibody Screen Negative 11/14/21 08:35 Vitals Last Vital Signs Temp 97.9 F 11/15/21 04:51 Pulse 76 11/15/21 04:51 Resp 18 11/15/21 02:35 BP 120/77 11/15/21 04:51 Pulse Ox 94 11/15/21 04:51 O2 Del Method 11/15/21 04:51 O2 Flow Rate 2 11/14/21 17:43 Discharge Plan Discharge Patient Disposition: Home Condition: Stable Prescriptions: New docusate sodium 100 mg Capsule 100 mg PO BID Qty: 60 0RF ibuprofen 800 mg Tablet 800 mg PO Q8H Qty: 30 0RF hydrocodone-acetaminophen 5-325 mg Tablet 1 tab PO Q4H PRN (Reason: Moderate To Severe Pain) Qty: 30 0RF Continued omeprazole 20 mg capsule,delayed release(DR/EC) 20 mg PO BID fluticasone propionate [Flonase Allergy Relief] 50 mcg/actuation spray,suspension 2 spray intranasal DAILY Qty: 15.8 5RF Rx Instructions: administer into each nostril escitalopram oxalate [Lexapro] 20 mg tablet 20 mg PO DAILY buspirone 10 mg tablet See Rx Instructions .ROUTE .COMPLEX Qty: 180 0RF Dose Instruction: TAKE 2 TABLETS BY MOUTH THREE TIMES DAILY Rx Instructions: TAKE 2 TABLETS BY MOUTH THREE TIMES DAILY metoprolol tartrate 25 mg tablet See Rx Instructions .ROUTE .COMPLEX Qty: 60 0RF Dose Instruction: Take 1 tablet by mouth twice daily Rx Instructions: Take 1 tablet by mouth twice daily Discharge Orders: Discharge Order (Routine); Ordered 11/15/21 Ordered By: Viky Soria Patient Instructions: Opioid Safety Discharge Attestations Time Spent in Discharge Care*: less than 30 min Quality Metrics Clinical Quality Measures [ No reported AMI, CVA or VTE this stay] Coding Level of Care Code Acute g DC note Diagnoses Uterine prolapse N81.4 Pelvic pain R10.2
[2021-11-15] MEDS: phenazopyridine 100 mg Tablet 200 MG PO (08:47)
[2021-11-15] MEDS: BuSPIRONE 10 mg Tablet 20 MG PO (08:47)
[2021-11-15] MEDS: docusate sodium 100 mg Capsule PO (08:48)
[2021-11-15 09:02] VITALS: BP 122/66; PULSE 80; RESP 16; O2SAT 94
[2021-11-15 09:45] VITALS: BP 122/66; PULSE 80; RESP 16; O2SAT 94
== END 2021-11-15 09:46 | disposition home or self-care (01) ==
LOC: OBGYN 13:08
PROVIDERS: Admitting Provider Obstetrics & Gynecology; PCP Electrodiagnostic Medicine; Visit Provider Obstetrics & Gynecology
PROC: 0UT9FZZ Resection of Uterus, Via Natural or Artificial Opening With Percutaneous Endoscopic Assistance (ICD-10-PCS; CPT 58552; principal; 2021-11-14 09:20)
PROC: 0JQC0ZZ Repair Pelvic Region Subcutaneous Tissue and Fascia, Open Approach (ICD-10-PCS; CPT 57240; 2021-11-14 09:20)
PROC: (CPT 57250; 2021-11-14 09:20)
PROC: (CPT 58661; 2021-11-14 09:20)
DX: N81.4 Uterovaginal prolapse, unspecified (principal); R10.2 Pelvic and perineal pain; D64.9 Anemia, unspecified; I10 Essential (primary) hypertension; K21.9 Gastro-esophageal reflux disease without esophagitis; E66.01 Morbid (severe) obesity due to excess calories; Z68.41 Body mass index [BMI] 40.0-44.9, adult; F41.9 Anxiety disorder, unspecified; F32.A Depression, unspecified; E78.5 Hyperlipidemia, unspecified
CPT/HCPCS: 58552; 36415; 80048; 85025; 85027; 86850; 86900; 87086; 88307; G0378; J0330; J1100; J1885; J2250; J2370; J2405; J2704; J2710; J3010; J3490; J7030

== ENCOUNTER 2022-04-05 11:33 | Emergency (ER) | payer BC, SELFPAY ==
[2022-04-05 11:45] VITALS: BP 144/91; PULSE 87; RESP 18; TEMP 36.9; O2SAT 98
--- NOTE | 2022-04-05 11:53 | ECG_ITS ---
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 Measurements Intervals [place] Rate: 87 P: 38 [place]: 130 QRS: 24 QRSD: 94 T: 68 QT: 361 QTc: 435 Interpretive Statements SINUS RHYTHM Compared to ECG 08/07/2019 13:01:57 No significant changes Electronically Signed On 04-05-2022 22:20:55 REFERRAL COORDINATOR by Kristin Vasquez M.D. [id number] f
[2022-04-05 12:08] VITALS: BP 150/85; PULSE 89; RESP 16; O2SAT 98
--- NOTE | 2022-04-05 12:09 | W.ED.DIZZY ---
HPI - Dizziness General: Chief Complaint: Dizziness Stated Complaint: Dizziness,SOB,Headpain Time Seen by Provider: 04/05/22 12:09 History of Present Illness: HPI Narrative: Ms Martinez is a 51-year-old lady with hypertension and obesity presenting to the emergency department for generalized illness. She reports symptom onset yesterday evening with intermittent lightheadedness. She notes that this was associated with position changes. This morning she has had continued symptoms associated with headache, intermittent sharp pain, and shortness of breath. Intensity symptoms moderate. Course is intermittent. No other specific changes in health, exacerbating, or alleviating factors identified. Onset (ago): day(s) Timing: intermittent Severity: moderate Exacerbating factors: standing Relieving factors: nothing Associated symptoms: Reports chest pain, headache(s), malaise and short of breath Review of Systems General: Reports: 10 or more systems reviewed and unremarkable except in HPI and below Const: Reports: malaise Card: Reports: chest pain Neuro: Reports: headache(s) PFSH ED PFSH: Medical History Anxiety and depression Chronic GERD Endometriosis Essential hypertension Hyperlipidemia Pelvic pain Statin intolerance Uterine prolapse Surgical History H/O knee surgery History of appendectomy Family History Other Adopted Social History Smoking and tobacco status: never smoked Physical Exam Const: COMMON NORMALS: alert GENERAL APPEARANCE: cooperative and well developed HENMT: COMMON NORMALS: normocephalic and atraumatic HEAD & SCALP: normocephalic and atraumatic Eye: COMMON NORMALS: conjunctivae normal CONJUNCTIVA: Yes conjunctivae normal SCLERA: sclerae normal Neck/C-Spine: COMMON NORMALS: supple GENERAL: Yes trachea midline Resp: COMMON NORMALS: clear to auscultation bilaterally EFFORT & INSPECTION: Yes able to speak in complete sentences AUSCULTATION: clear to auscultation bilaterally Cardio: COMMON NORMALS: regular rate and regular rhythm RATE: regular rate RHYTHM: regular rhythm GI: COMMON NORMALS: Soft to palpation PALPATION: Yes Soft to palpation and No Tenderness to palpation present (GI) Extremity: GENERAL: Yes normal exam except as noted and No edema Neuro: COMMON NORMALS: moves all extremities SENSORIUM/ORIENTATION: Yes alert and No Orientation impaired Psych: COMMON NORMALS: mental status grossly normal and Normal thought process present THOUGHT PROCESS: Normal thought process present Course Vital Signs: Vital signs: Vital Signs Temperature 98.5 F 04/05/22 11:45 Pulse Rate 94 04/05/22 15:51 Respiratory Rate 16 04/05/22 14:49 Blood Pressure 139/81 04/05/22 15:51 Pulse Oximetry 98 04/05/22 14:49 Oxygen Delivery Me thod 04/05/22 14:49 MDM - Dizziness Medical Decision Making 51-year-old lady presenting with generalized illness. Exam as above with no focal neurologic deficits appreciated. Patient is nontoxic. EKG notable for sinus rhythm, normal axis and intervals, no STEMI. No significant hematologic or metabolic abnormalities to explain symptoms. Negative initial and 2-hour delta troponin. Negative viral studies. Chest x-ray with no lobar consolidation or pneumothorax. Patient improved with aspirin, Toradol, IV fluids, medication for blood pressure and meclizine. Most likely etiology of symptoms is nonspecific chest pain, shortness of breath, dizziness. Patient is low risk by heart score. The results of ED evaluation were discussed with the patient including prescriptions and/or symptomatic cares (if applicable) including appropriate and responsible use, followup plan, and return precautions. The patient verbalized understanding and felt safe for discharge. Medical Records I reviewed the patient's medical records. Lab Data I reviewed the patient's lab results. 04/05/22 12:40 04/05/22 12:40 Radiology Impressions Chest X-Ray 04/05/22 12:18 IMPRESSION: Unremarkable chest radiograph. Laboratory Results WBC 6.6 10^3/uL (4.0-10.0) 04/05/22 12:40 RBC 5.08 10^6/uL (4.1-5.3) 04/05/22 12:40 Hgb 14.3 g/dL (11.5-15.3) 04/05/22 12:40 Hct 44.6 % (37.0-47.0) 04/05/22 12:40 MCV 87.8 fl (81-99) 04/05/22 12:40 MCH 28.1 pg (28.0-34.0) 04/05/22 12:40 MCHC 32.1 g/dL (30.0-36.0) 04/05/22 12:40 RDW 12.8 % (12.1-15.1) 04/05/22 12:40 Plt Count 135 10^3/cmm (130-400) 04/05/22 12:40 MPV 10.8 fL (7.4-10.4) H 04/05/22 12:40 Neut % (Auto) 55.9 % 04/05/22 12:40 Lymph % (Auto) 30.7 % 04/05/22 12:40 [place] % (Auto) 6.7 % 04/05/22 12:40 Eos % (Auto) 5.3 % 04/05/22 12:40 Baso % (Auto) 1.1 % 04/05/22 12:40 Neut # (Auto) 3.66 10^3/uL (1.8-7.7) 04/05/22 12:40 Lymph # (Auto) 2.0 10^3/uL (0.8-4.8) 04/05/22 12:40 [place] # (Auto) 0.4 10^3/uL (0.2-0.9) 04/05/22 12:40 Eos # (Auto) 0.4 10^3/uL (0.0-0.8) 04/05/22 12:40 Baso # (Auto) 0.1 10^3/uL (0.0-0.1) 04/05/22 12:40 Nucleated RBC % (auto) 0 % 04/05/22 12:40 Nucleated RBCs # 0.0 /100WBC 04/05/22 12:40 Sodium 136 mmol/L (136-145) 04/05/22 12:40 Potassium 4.5 mmol/L (3.5-5.1) 04/05/22 12:40 Chloride 99 mmol/L (98-107) 04/05/22 12:40 Carbon Dioxide 25 mmol/L (22-29) 04/05/22 12:40 Anion Gap 16.5 (5-19) 04/05/22 12:40 BUN 13 mg/dL (6-20) 04/05/22 12:40 Creatinine 0.7 mg/dL (0.5-0.9) 04/05/22 12:40 GFR Calculation 88.2 mL/min (90-130) L 04/05/22 12:40 Glucose 101 mg/dL (65-115) 04/05/22 12:40 Calculated Osmolality 282 mOsm/kg (285-295) L 04/05/22 12:40 Calcium 9.9 mg/dL (8.5-10.5) 04/05/22 12:40 Total Bilirubin 0.7 mg/dL (0.15-1.2) 04/05/22 12:40 AST 18 U/L (0-32) 04/05/22 12:40 ALT 19 U/L (0-33) 04/05/22 12:40 Alkaline Phosphatase 86 U/L (35-105) 04/05/22 12:40 Troponin T Baseline 6 ng/L (0-10) 04/05/22 12:40 Troponin T 120 Minute 6.00 ng/L (0-10) 04/05/22 14:45 Delta Troponin T 0 ABS# (0-10) 04/05/22 14:45 Total Protein 7.9 g/dL (6.6-8.7) 04/05/22 12:40 Albumin 4.4 g/dL (3.5-5.2) 04/05/22 12:40 Globulin 3.5 g/dL (1.3-4.6) 04/05/22 12:40 TSH 2.03 uIU/mL (0.27-4.20) 04/05/22 12:40 Influenza Type A Ag negative (Negative) 04/05/22 13:00 Influenza Type B Ag negative (Negative) 04/05/22 13:00 SARS-CoV-2 Ag (Rapid) negative (Negative) 04/05/22 13:00 Discharge Plan Discharge Patient Disposition: Home Clinical Impression: Intermittent lightheadedness, Chest pain, Shortness of breath Condition: Stable Prescriptions: No Action estradiol 0.1 mg/24 hr patch semiweekly 1 patch transdermal .twice weekly 4 Days Qty: 8 12RF venlafaxine 150 mg capsule,extended release 24hr 150 mg PO BEDTIME Prilosec OTC 20 mg Tablet,Delayed Release (Dr/Ec) 40 mg PO DAILY ibuprofen 800 mg tablet 800 mg PO Q8H PRN (Reason: Pain) Flonase Allergy Relief 50 mcg/actuation spray,suspension 2 spray intranasal DAILY PRN (Reason: Allergy Symptoms) Rx Instructions: administer into each nostril metoprolol tartrate 50 mg tablet 50 mg PO Q12H Discharge Orders: Discharge ED (Routine); Ordered 04/05/22 Ordered By: Nikolas Dias Referrals: Abel Mejia, DO [Primary Care Provider] - Discharge Diet: Usual diet Discharge Activity: Increase activity as tolerated Patient Instructions: Chest Pain (ED), Lightheadedness (ED), Shortness of Breath (ED) Activity Restrictions/Additional Instructions: Thank you for visiting the emergency department. You were seen and evaluated for generalized illness including lightheadedness and chest pain as well as shortness of breath. The exact cause of your symptoms is unclear however does not appear to need inpatient management at this time. Please follow-up with your primary care provider. Return to the emergency department for uncontrolled or worsening symptoms or anything else that you are concerned about and feel needs emergency department evaluation. Coding Level of Care Code ED Maintenance Of Way Supervisor for Caro Armstrong
--- NOTE | 2022-04-05 12:18 | XR_ITS ---
WS: [id number] Exam: XR chest 1V portable [id number] Date/Time of Exam: 04/05/2022 12:32 PM Reason For Exam: cp Comparison 08/07/2019. Findings: The lungs are clear and fully expanded. Costophrenic angles are sharp. No infiltrates. Bronchovascula r relief appears normal. Cardiac silhouette is unremarkable. Bony elements are intact. XR/XR chest 1V portable [id number] IMPRESSION: Unremarkable chest radiograph.
[2022-04-05 12:50] LABS: Basophils # 0.1 10^3/uL (0.0-0.1); Basophils % 1.1 %; Eosinophils # 0.4 10^3/uL (0.0-0.8); Eosinophils % 5.3 %; Hematocrit 44.6 % (37.0-47.0); Hemoglobin 14.3 g/dL (11.5-15.3); Lymphocytes % 30.7 %; Mean Corpuscular HGB Conc 32.1 g/dL (30.0-36.0); Mean Corpuscular Hemoglobin 28.1 pg (28.0-34.0); Mean Corpuscular Volume 87.8 fl (81-99); Mean Platelet Volume 10.8 fL (7.4-10.4); Monocytes # 0.4 10^3/uL (0.2-0.9); Monocytes % 6.7 %; Neutrophils # 3.66 10^3/uL (1.8-7.7); Neutrophils % 55.9 %; Nucleated Red Blood Cells % 0 %; Platelet Count 135 10^3/cmm (130-400); Red Blood Count 5.08 10^6/uL (4.1-5.3); Red Cell Distribution Width 12.8 % (12.1-15.1); White Blood Count 6.6 10^3/uL (4.0-10.0)
[2022-04-05 13:12] LABS: Troponin(5th) Baseline 6 ng/L (0-10)
[2022-04-05 13:22] LABS: Alanine Aminotransferase 19 U/L (0-33); Albumin Level 4.4 g/dL (3.5-5.2); Alkaline Phosphatase 86 U/L (35-105); Aspartate Amino Transferase 18 U/L (0-32); Blood Urea Nitrogen 13 mg/dL (6-20); Calcium 9.9 mg/dL (8.5-10.5); Carbon Dioxide 25 mmol/L (22-29); Chloride 99 mmol/L (98-107); Globulin 3.5 g/dL (1.3-4.6); Glomerular Filtration Rate 88.2 mL/min (90-130); Glucose 101 mg/dL (65-115); Osmolality Calculated 282 mOsm/kg (285-295); Sodium 136 mmol/L (136-145); Thyroid Stimulating Hormone 2.03 uIU/mL (0.27-4.20); Total Bilirubin 0.7 mg/dL (0.15-1.2); Total Protein 7.9 g/dL (6.6-8.7)
[2022-04-05 13:23] LABS: Anion Gap 16.5 (5-19); Potassium 4.5 mmol/L (3.5-5.1)
[2022-04-05] MEDS: sodium chloride 0.9% 1,000 ML 999 ML IV (13:30)
[2022-04-05 13:36] LABS: Influenza A by IFA negative (Negative); Influenza B by IFA negative (Negative); SARS Covid-2 Antigen negative (Negative)
[2022-04-05 13:38] LABS: Slide Review Slide Review Perform
[2022-04-05] MEDS: aspirin 81 mg Chew Tablet 324 MG PO (13:40)
[2022-04-05] MEDS: ketorolac 30 mg/mL INJ 15 MG IVP (13:41)
[2022-04-05] MEDS: labetalol 5 mg/mL SDV 20mL 10 MG IVP (14:36)
--- NOTE | 2022-04-05 14:37 | ECG_ITS ---
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 Measurements Intervals [place] Rate: 79 P: 51 ME: 160 QRS: 32 QRSD: 98 T: 72 QT: 389 QTc: 447 Interpretive Statements SINUS RHYTHM LOW QRS VOLTAGE IN PRECORDIAL LEADS [QRS DEFLECTION < 1.0 mV IN CHEST LEADS] MINIMAL ST DEPRESSION [0.025+ mV ST DEPRESSION] Compared to ECG 04/05/2022 11:53:28 Low QRS voltage now present ST (T wave) deviation now present Electronically Signed On 04-05-2022 22:29:55 CONSUMER INSIGHTS INTERN by Kristin Vasquez M.D. [id number]
[2022-04-05 14:49] VITALS: BP 148/91; PULSE 85; RESP 16; O2SAT 98
[2022-04-05] MEDS: meclizine 25 mg tablet PO (15:33)
[2022-04-05 15:38] LABS: Troponin 5 2HR Delta 0 ABS# (0-10)
[2022-04-05 15:51] VITALS: BP 125/91; BP 134/92; BP 139/81; PULSE 101; PULSE 94
== END 2022-04-05 16:33 | disposition home or self-care (01) ==
PROVIDERS: Emergency Provider Emergency Medicine; PCP Electrodiagnostic Medicine
DX: R42 Dizziness and giddiness (principal); R07.9 Chest pain, unspecified; R06.02 Shortness of breath; Z20.822 Contact with and (suspected) exposure to COVID-19; I10 Essential (primary) hypertension; E78.5 Hyperlipidemia, unspecified
CPT/HCPCS: 36415; 71045; 80053; 84443; 84484; 85025; 87426; 87804; 93005; 96361; 96374; 96375; 99285; J1885; J3490; J7030; J8597

== ENCOUNTER 2022-06-28 21:11 | Emergency (ER) | payer BC, SELFPAY ==
[2022-06-28 21:12] VITALS: BP 163/106; PULSE 98; RESP 16; TEMP 36.6; O2SAT 95
--- NOTE | 2022-06-28 21:30 | XRR_ITS ---
PROCEDURE INFORMATION: Exam: XR Abdomen Exam date and time: 06/28/2022 9:38 PM Age: 51 years old Clinical indication: Abdominal pain; Additional info: Abd pain TECHNIQUE: Imaging protocol: Radiologic exam of the abdomen. Views: Frontal supine view of the abdomen. 1 View. COMPARISON: CT abdomen pelvis w con* [id number] 07/16/2018 12:10 PM FINDINGS: Gastrointestinal tract: No bowel dilation. Moderate proximal colonic stool burden. Bones/joints: No acute findings. Degenerative changes of lumbar spine and bilateral hip joints. Other findings: Two supine views submitted. XR/XR KUB portable [id number] IMPRESSION: No acute findings.
--- NOTE | 2022-06-28 21:31 | W.ED.FALL ---
HPI - Fall General: Chief Complaint: Fall Stated Complaint: fall, lower abd pain Time Seen by Provider: 06/28/22 21:21 Source: patient Mode of arrival: ambulatory Limitations: no limitations History of Present Illness: 51-year-old female who states that she slipped in her home yesterday on cement fluid. States she had fell down her arm she states she did not hit her abdomen when she fell but she felt like she had twisted states she did not really have any pain yesterday she woke up this morning with soreness in her abdomen that is worsened throughout the day its mainly left lower quadrant over the muscle. She denies hitting her head denies any loss conscious she rates her abdominal pain a 6 out of 10 currently. Associated symptoms-after fall: Reports abdominal pain; Denies chest pain, headache(s) or neck pain Review of Systems Const: Denies: fever(s) or chills ENMT: Denies: throat pain or dental pain Card: Denies: chest pain Resp: Denies: dyspnea GI: Reports: abdominal pain; Denies: nausea, vomiting or diarrhea : Denies: dysuria Musc: Denies: neck pain or back pain Skin/Breast: Denies: rash Neuro: Denies: headache(s) PFSH ED PFSH: Medical History Anxiety and depression Chronic GERD Endometriosis Essential hypertension Hyperlipidemia Pelvic pain Statin intolerance Uterine prolapse Surgical History H/O knee surgery History of appendectomy Family History Other Adopted Social History Smoking and tobacco status: never smoked Substance/Drug Use: never Physical Exam Const: COMMON NORMALS: no acute distress, average body habitus and patient oriented x3 HENMT: COMMON NORMALS: normocephalic and atraumatic HEAD & SCALP: normocephalic and atraumatic Eye: COMMON NORMALS: conjunctivae normal CONJUNCTIVA: Yes conjunctivae normal Neck/C-Spine: COMMON NORMALS: supple Chest: COMMONS NORMALS: normal inspection of the chest and normal palpation of entire chest wall Resp: COMMON NORMALS: normal respiratory effort GI: COMMON NORMALS: Normal to inspection, nondistended, normoactive bowel sounds present and Soft to palpation PALPATION: Yes Soft to palpation OTHER: Some slight tenderness in the left lower quadrant Back/Pelvis: COMMON NORMALS: thoracic and lumbar spine normal to inspection Extremity: COMMON NORMALS: normal to inspection Neuro: COMMON NORMALS: patient oriented x3 Psych: COMMON NORMALS: mental status grossly normal Course Vital Signs: Vital signs: Vital Signs Temperature 97.9 F 06/28/22 21:12 Pulse Rate 103 H 06/28/22 22:46 Respiratory Rate 16 06/28/22 22:46 Blood Pressure 131/100 06/28/22 21:53 Pulse Oximetry 94 06/28/22 22:46 Oxygen Delivery Me thod Room Air 06/28/22 21:12 MDM - Fall Medical Decision Making Patient presents here with abdominal strain from a fall this is likely muscle strain she did not fall on her abdomen or abdomen is minimally tender blood works normal she has no signs of intra-abdominal injury she feels improved here we will place her on pain meds she is to follow-up with PCP and return if she has worsening pain she understands agrees to plan. Medical Records I reviewed the patient's medical records. Lab Data I reviewed the patient's lab results. 06/28/22 21:55 06/28/22 21:55 Radiology Impressions KUB X-Ray 06/28/22 21:30 IMPRESSION: No acute findings. Laboratory Results WBC 6.6 10^3/uL (4.0-10.0) 06/28/22 21:55 RBC 4.73 10^6/uL (4.1-5.3) 06/28/22 21:55 Hgb 13.7 g/dL (11.5-15.3) 06/28/22 21:55 Hct 41.5 % (37.0-47.0) 06/28/22 21:55 MCV 87.7 fl (81-99) 06/28/22 21:55 MCH 29.0 pg (28.0-34.0) 06/28/22 21:55 MCHC 33.0 g/dL (30.0-36.0) 06/28/22 21:55 RDW 13.1 % (12.1-15.1) 06/28/22 21:55 Plt Count 304 10^3/cmm (130-400) 06/28/22 21:55 MPV 9.7 fL (7.4-10.4) 06/28/22 21:55 Neut % (Auto) 42.4 % 06/28/22 21:55 Lymph % (Auto) 44.0 % 06/28/22 21:55 [place] % (Auto) 7.5 % 06/28/22 21:55 Eos % (Auto) 4.7 % 06/28/22 21:55 Baso % (Auto) 1.2 % 06/28/22 21:55 Neut # (Auto) 2.81 10^3/uL (1.8-7.7) 06/28/22 21:55 Lymph # (Auto) 2.9 10^3/uL (0.8-4.8) 06/28/22 21:55 [place] # (Auto) 0.5 10^3/uL (0.2-0.9) 06/28/22 21:55 Eos # (Auto) 0.3 10^3/uL (0.0-0.8) 06/28/22 21:55 Baso # (Auto) 0.1 10^3/uL (0.0-0.1) 06/28/22 21:55 Nucleated RBC % (auto) 0 % 06/28/22 21:55 Nucleated RBCs # 0.0 /100WBC 06/28/22 21:55 Sodium 140 mmol/L (136-145) 06/28/22 21:55 Potassium 3.9 mmol/L (3.5-5.1) 06/28/22 21:55 Chloride 103 mmol/L (98-107) 06/28/22 21:55 Carbon Dioxide 24 mmol/L (22-29) 06/28/22 21:55 Anion Gap 16.9 (5-19) 06/28/22 21:55 BUN 13 mg/dL (6-20) 06/28/22 21:55 Creatinine 0.7 mg/dL (0.5-0.9) 06/28/22 21:55 GFR Calculation 88.2 mL/min (90-130) L 06/28/22 21:55 Glucose 137 mg/dL (65-115) H 06/28/22 21:55 Calculated Osmolality 292 mOsm/kg (285-295) 06/28/22 21:55 Calcium 9.4 mg/dL (8.5-10.5) 06/28/22 21:55 Total Bilirubin 0.5 mg/dL (0.15-1.2) 06/28/22 21:55 AST 25 U/L (0-32) 06/28/22 21:55 ALT 33 U/L (0-33) 06/28/22 21:55 Alkaline Phosphatase 71 U/L (35-105) 06/28/22 21:55 Total Protein 7.2 g/dL (6.6-8.7) 06/28/22 21:55 Albumin 4.0 g/dL (3.5-5.2) 06/28/22 21:55 Globulin 3.2 g/dL (1.3-4.6) 06/28/22 21:55 Discharge Plan Discharge Patient Disposition: Home Clinical Impression: Abdominal pain Condition: Stable Prescriptions: New Naprosyn 500 mg tablet 500 mg PO BID PRN (Reason: pain) Qty: 20 0RF No Action estradiol 0.1 mg/24 hr patch semiweekly 1 patch transdermal .twice weekly 4 Days Qty: 8 12RF venlafaxine 150 mg capsule,extended release 24hr 150 mg PO BEDTIME Prilosec OTC 20 mg Tablet,Delayed Release (Dr/Ec) 40 mg PO DAILY ibuprofen 800 mg tablet 800 mg PO Q8H PRN (Reason: Pain) Flonase Allergy Relief 50 mcg/actuation spray,suspension 2 spray intranasal DAILY PRN (Reason: Allergy Symptoms) Rx Instructions: administer into each nostril metoprolol tartrate 50 mg tablet 50 mg PO Q12H Discharge Orders: Discharge ED (Routine); Ordered 06/28/22 Ordered By: Alejandra Orellana Referrals: Abel Mejia DO [Primary Care Provider] - 1-3 days Discharge Diet: Advance as tolerated Discharge Activity: Resume usual activity Patient Instructions: Abdominal Pain (ED) Coding Level of Care Code ED Social Media Strategist for Caro Armstrong
[2022-06-28 21:53] VITALS: BP 131/100; PULSE 106; RESP 16; O2SAT 96
[2022-06-28] MEDS: sodium chloride 0.9% 1,000 ML 999 ML IV (21:58)
[2022-06-28] MEDS: morphine 4 mg/mL SDV 1 mL IVP (21:58)
[2022-06-28] MEDS: ondansetron 2 mg/ML SDV 2 mL 4 MG IVP (21:58)
[2022-06-28 22:08] LABS: Basophils # 0.1 10^3/uL (0.0-0.1); Basophils % 1.2 %; Eosinophils # 0.3 10^3/uL (0.0-0.8); Eosinophils % 4.7 %; Hematocrit 41.5 % (37.0-47.0); Hemoglobin 13.7 g/dL (11.5-15.3); Lymphocytes # 2.9 10^3/uL (0.8-4.8); Mean Corpuscular Volume 87.7 fl (81-99); Mean Platelet Volume 9.7 fL (7.4-10.4); Monocytes # 0.5 10^3/uL (0.2-0.9); Monocytes % 7.5 %; Neutrophils # 2.81 10^3/uL (1.8-7.7); Neutrophils % 42.4 %; Nucleated Red Blood Cells % 0 %; Platelet Count 304 10^3/cmm (130-400); Red Blood Count 4.73 10^6/uL (4.1-5.3); Red Cell Distribution Width 13.1 % (12.1-15.1); White Blood Count 6.6 10^3/uL (4.0-10.0)
[2022-06-28 22:32] LABS: Alanine Aminotransferase 33 U/L (0-33); Alkaline Phosphatase 71 U/L (35-105); Blood Urea Nitrogen 13 mg/dL (6-20); Calcium 9.4 mg/dL (8.5-10.5); Carbon Dioxide 24 mmol/L (22-29); Chloride 103 mmol/L (98-107); Globulin 3.2 g/dL (1.3-4.6); Glomerular Filtration Rate 88.2 mL/min (90-130); Glucose 137 mg/dL (65-115); Osmolality Calculated 292 mOsm/kg (285-295); Sodium 140 mmol/L (136-145); Total Bilirubin 0.5 mg/dL (0.15-1.2); Total Protein 7.2 g/dL (6.6-8.7)
[2022-06-28 22:35] LABS: Anion Gap 16.9 (5-19); Aspartate Amino Transferase 25 U/L (0-32); Potassium 3.9 mmol/L (3.5-5.1)
[2022-06-28 22:46] VITALS: PULSE 103; RESP 16; O2SAT 94
[2022-06-28 22:55] VITALS: BP 131/100; PULSE 103; RESP 16; TEMP 36.6; O2SAT 94
== END 2022-06-28 22:56 | disposition home or self-care (01) ==
PROVIDERS: Emergency Provider Emergency Medicine; PCP Electrodiagnostic Medicine
DX: R10.32 Left lower quadrant pain (principal); I10 Essential (primary) hypertension; E78.5 Hyperlipidemia, unspecified
CPT/HCPCS: 74018; 80053; 85025; 96361; 96374; 96375; 99284; J2270; J2405; J7030

== ENCOUNTER 2022-07-11 21:26 | Emergency (ER) | payer BC, SELFPAY ==
[2022-07-11 21:41] VITALS: BP 138/100; PULSE 73; RESP 18; TEMP 36.6; O2SAT 96; BMI 43.4
--- NOTE | 2022-07-11 21:55 | ED_ITS ---
HPI - Fall General: Chief Complaint: Fall Stated Complaint: Left Leg\Possible Head Time Seen by Provider: 07/11/22 21:37 History of Present Illness: 51-year-old female comes in today for complaints of fall and injury. Patient reports pain and discomfort to the left knee with a significant abrasion. Patient also reports hitting her head but denies nausea vomiting or severe headache. Patient appears nontoxic. Patient has a history of hypertension but no other chronic medical problems. Review of Systems General: Reports: 10 or more systems reviewed and unremarkable except in HPI and below Const: Denies: fever(s) Musc: Reports: extremity pain Skin/Breast: Reports: new lesions PFSH ED PFSH: Medical History Anxiety and depression Chronic GERD Endometriosis Essential hypertension Hyperlipidemia Pelvic pain Statin intolerance Uterine prolapse Surgical History H/O knee surgery History of appendectomy Family History Other Adopted Social History Smoking and tobacco status: never smoked Substance/Drug Use: never Physical Exam Const: COMMON NORMALS: alert HENMT: COMMON NORMALS: atraumatic HEAD & SCALP: atraumatic Neck/C-Spine: COMMON NORMALS: full ROM Resp: COMMON NORMALS: normal respiratory effort and clear to auscultation bilaterally AUSCULTATION: clear to auscultation bilaterally Cardio: COMMON NORMALS: regular rate and regular rhythm RATE: regular rate RHYTHM: regular rhythm GI: COMMON NORMALS: Soft to palpation PALPATION: Yes Soft to palpation Back/Pelvis: COMMON NORMALS: thoracic and lumbar spine normal to inspection Extremity: LEFT LOWER EXTREMITY: Yes knee joint (Reduced ROM due to pain, anterior abrasion) Neuro: SENSORIUM/ORIENTATION: Yes alert Skin: TRAUMA: abrasion (Left knee) Course Vital Signs: Vital signs: Vital Signs Temperature 97.9 F 07/11/22 21:41 Pulse Rate 73 07/11/22 21:41 Respiratory Rate 18 07/11/22 21:41 Blood Pressure 138/100 07/11/22 21:41 Pulse Oximetry 96 07/11/22 21:41 Oxygen Delivery Me thod Room Air 07/11/22 21:41 MDM - Fall Medical Decision Making Patient comes in today for injuries sustained from a fall this evening. Patient appears nontoxic. Patient appears in mild pain. On exam there is a large abrasion to the left knee. Range of motion is reduced to the left knee due to pain. No obvious deformity or foreign bodies are noted. Distal pulses and sensation are intact. Examination of the scalp notes no injury but some mild tenderness is noted on palpation of the right parietal scalp. No focal neural deficits or signs of significant injuries noted. Differential diagnosis includes but not limited to fracture, contusions, abrasions, intracranial bleeding. No signs of significant injuries noted. X-ray of the knee indicated no fracture. Reviewed exam and recommendations for treatment of abrasions. Did not recommend CT scan at this time as there was no sign of significant injury or intracranial bleeding. Patient reported understanding and agreed to plan and treatment and need for follow-up. Lab Data Radiology Impressions Knee X-Ray 07/11/22 22:11 IMPRESSION: No acute fracture demonstrated. Discharge Plan Discharge Patient Disposition: Home Clinical Impression: Fall Qualifiers: Encounter type: initial encounter Qualified Code(s): W19.XXXA - Unspecified fall, initial encounter Abrasion of knee, left Qualifiers: Encounter type: initial encounter Qualified Code(s): S80.212A - Abrasion, left knee, initial encounter Condition: Stable Prescriptions: New bacitracin 500 unit/gram ointment 1 applic topical BID Qty: 28 0RF No Action estradiol 0.1 mg/24 hr patch semiweekly 1 patch transdermal .twice weekly 4 Days Qty: 8 12RF venlafaxine 150 mg capsule,extended release 24hr 150 mg PO BEDTIME Prilosec OTC 20 mg Tablet,Delayed Release (Dr/Ec) 40 mg PO DAILY ibuprofen 800 mg tablet 800 mg PO Q8H PRN (Reason: Pain) Flonase Allergy Relief 50 mcg/actuation spray,suspension 2 spray intranasal DAILY PRN (Reason: Allergy Symptoms) Rx Instructions: administer into each nostril metoprolol tartrate 50 mg tablet 50 mg PO Q12H Naprosyn 500 mg tablet 500 mg PO BID PRN (Reason: pain) Qty: 20 0RF Discharge Orders: Discharge ED (Routine); Ordered 07/11/22 Ordered By: Stan Godfrey Referrals: Abel Mejia DO [Primary Care Provider] - Discharge Diet: Usual diet Discharge Activity: Increase activity as tolerated Patient Instructions: Abrasion (ED) Activity Restrictions/Additional Instructions: Activity as tolerated. Clean wound with mild soap and water daily and apply antibiotic ointment to it. Use antibiotic ointment twice daily to the wound until healed. Use acetaminophen and ibuprofen for pain control. Activity as tolerated. Follow-up with primary care as needed. Return to ED for new concerns. Stand Alone Forms: Work/School Release Coding Level of Care Code ED Director [employer] for [facility]
--- NOTE | 2022-07-11 22:11 | XRR_ITS ---
PROCEDURE INFORMATION: Exam: XR Left Knee Exam date and time: 07/11/2022 10:15 PM Age: 51 years old Clinical indication: Pain; Knee; Left; Additional info: Injury TECHNIQUE: Imaging protocol: Radiologic exam of the left knee. Views: 3 views. COMPARISON: No relevant prior studies available. FINDINGS: Bones/joints: No acute fracture or other acute osseous abnormality. No significant joint narrowing. No joint dislocation. No joint effusion noted. Soft tissues: The soft tissues are unremarkable as demonstrated. XR/XR knee LT 3V* [id number] IMPRESSION: No acute fracture demonstrated.
[2022-07-11] MEDS: bacitracin ointment Pkt 1 EACH TOPICAL (22:50)
== END 2022-07-11 22:50 | disposition home or self-care (01) ==
PROVIDERS: Emergency Provider Nurse Practitioner Family; PCP Electrodiagnostic Medicine
DX: S80.212A Abrasion, left knee, initial encounter (principal); I10 Essential (primary) hypertension; E72.3 Disorders of lysine and hydroxylysine metabolism; W19.XXXA Unspecified fall, initial encounter
CPT/HCPCS: 73562; 99283

== ENCOUNTER → 2023-03-21 08:18 | Outpatient (BNVA) | payer BC, SELFPAY | PROVIDERS: PCP Electrodiagnostic Medicine; Visit Provider Obstetrics & Gynecology | DX: R10.2 Pelvic and perineal pain (principal); Z90.710 Acquired absence of both cervix and uterus; Z90.722 Acquired absence of ovaries, bilateral | CPT/HCPCS: 76857 ==

== ENCOUNTER 2023-07-02 13:35 | Observation (INO) | payer BC, SELFPAY ==
[2023-07-01 11:09] LABS: Basophils # 0.1 10^3/uL (0.0-0.1); Basophils % 1.4 %; Eosinophils # 0.3 10^3/uL (0.0-0.8); Hematocrit 38.2 % (36-47); Lymphocytes # 2.1 10^3/uL (0.8-4.8); Lymphocytes % 33.2 %; Mean Corpuscular HGB Conc 31.7 g/dL (30-55); Mean Corpuscular Hemoglobin 24.9 pg (27-33); Mean Corpuscular Volume 78.8 fl (85-98); Mean Platelet Volume 9.6 fL (7.4-10.4); Monocytes # 0.4 10^3/uL (0.2-0.9); Monocytes % 6.9 %; Neutrophils # 3.33 10^3/uL (1.8-7.7); Neutrophils % 53.3 %; Nucleated Red Blood Cells % 0 %; Platelet Count 345 10^3/cmm (157-399); Red Blood Count 4.85 10^6/uL (3.85-5.65); Red Cell Distribution Width 14.7 % (12.1-15.1); White Blood Count 6.24 10^3/uL (3.29-11.43)
--- NOTE | 2023-07-01 11:11 | P.ANESASSM_ITS ---
Pre-Anesthetic Assessment Height/Weight: Height 1.6 m Operation Date: 07/02/23 10:05 Proposed Procedures p Diagnostic laparoscopy 31103, Anterior colporrhaphy 69820, Sling 74245(Not Applicable) - Bernabe Fu MD s Colporrhaphy Anterior(Not Applicable) - Bernabe Fu MD s Sling Single Incision Sling(Not Applicable) - Bernabe Fu MD Familial anesthetic complications: Delayed awakening Was Beta Diane taken within 24 hours: Yes Was Clonidine taken within 24 hours: N/A Social No alcohol and No tobacco Exam alert, oriented x 3, clear to auscultation bilaterally and regular rate & rhythm Airway Submandibular: within normal limits Cervical ROM: within normal limits Mallampati: Class III Dentition: full CV/HEM Anemia and Hypertension GI Gastroesophageal Reflux Disease Metabolic Morbid Obesity Neuropsych Anxiety and Depression Anesthetic Plan ASA status: 3 Anesthesia: General Medications/Allergies Home Medications Medication Instructions Recorded Confirmed Last Taken Type fluticasone propionate 50 2 spray intranasal DAILY PRN 04/05/22 07/01/23 07/01/23 History mcg/actuation nasal Allergy Symptoms spray,suspension (Flonase Allergy Relief) ibuprofen 800 mg tablet 800 mg PO Q8H PRN Pain 04/05/22 07/01/23 06/27/23 History metoprolol tartrate 50 mg tablet 50 mg PO Q12H 04/05/22 07/01/23 07/01/23 History venlafaxine 150 mg 150 mg PO BEDTIME 04/05/22 07/01/23 07/01/23 History capsule,extended release 24 hr pantoprazole 20 mg tablet,delayed 20 mg PO DAILY 02/15/23 07/01/23 07/01/23 History release triamterene 37.5 1 cap PO DAILY swelling 07/01/23 07/01/23 07/01/23 History mg-hydrochlorothiazide 25 mg capsule Allergies Allergy/AdvReac Type Severity Reaction Status Date / Time [id number] Reductase Allergy ADR-Nausea Verified 06/24/23 07:40 Inhibitor [facility] Anesthesia Medical History Uterine prolapse Endometriosis Pelvic pain Statin intolerance Hyperlipidemia Anxiety and depression Chronic GERD Essential hypertension Surgical History History of endometrial ablation (~2010) performed 2 weeks after the laparoscopy History of laparoscopy (~2010) diagnosed with endometriosis H/O: hysterectomy (~11/2021) LAVH, BSO, PERINEORRAPHY, CYSTOSCOPY. Performed by Estella at [facility]. Benign pathology. H/O knee surgery History of appendectomy Family History Other Adopted Data Anesthesia 07/01/23 11:00 07/01/23 11:00 Short CBC 07/01/23 Range/Units 11:00 WBC 6.24 (3.29-11.43) 10^3/uL Hgb 12.10 (11.27-16.99) g/dL Hct 38.2 (36-47) % MCV 78.8 L (85-98) fl Plt Count 345 (157-399) 10^3/cmm Neut % (Auto) 53.3 % Neut # (Auto) 3.33 (1.8-7.7) 10^3/uL Cardiac Studies: 2 No Data to Display
[2023-07-01 11:25] LABS: Alanine Aminotransferase 22 U/L (0-33); Alkaline Phosphatase 81 U/L (35-105); Anion Gap 15.1 (5-19); Aspartate Amino Transferase 17 U/L (0-32); Blood Urea Nitrogen 14 mg/dL (6-20); Calcium 9.2 mg/dL (8.5-10.5); Carbon Dioxide 24 mmol/L (22-29); Chloride 102 mmol/L (98-107); Globulin 3.2 g/dL (1.3-4.6); Glomerular Filtration Rate 87.9 mL/min (90-130); Glucose 134 mg/dL (65-115); Osmolality Calculated 286 mOsm/kg (285-295); Potassium 4.1 mmol/L (3.5-5.1); Sodium 137 mmol/L (136-145); Total Bilirubin 0.6 mg/dL (0.15-1.2); Total Protein 7.2 g/dL (6.6-8.7)
[2023-07-02] VITALS (13 sets, daily range): BP systolic 109–138; BP diastolic 70–90; PULSE 71–105; RESP 14–18; TEMP 36.2–36.8; O2SAT 90–100; BMI 39.8
[2023-07-02] MEDS: scopolamine 1.5 Patch 1 PATCH TRANSDERMA (09:41)
[2023-07-02] MEDS: sodium chloride 0.9% 500 ML IV ×2 (09:44→22:23)
[2023-07-02 09:46] LABS: Add Urine Microscopic? NO; Charge for UA Resulting for Rev
[2023-07-02 09:53] LABS: Bilirubin Urine Neg (Negative); Blood Urine Neg (Negative); Glucose Urine UA Norm (Normal); Ketones Urine Negative (Negative); Nitrate Urine Negative (Negative); Protein Urine Neg (Negative); Urine Appearance Clear (CLEAR); Urine Color Yellow (Yellow); pH Urine 5 (5-7)
[2023-07-02 09:54] LABS: Leukocyte Esterase Urine Negative (Negative); Urobilinogen Urine Neg (Negative)
[2023-07-02] MEDS: ceFAZolin 2,000 MG in sodium chloride 0.9% (plus) 50 ML 100 MG IV (10:06)
[2023-07-02] MEDS: sodium chloride 0.9% 1,000 ML 30 ML IV (10:26)
--- NOTE | 2023-07-02 11:20 | W.PM.OPSUD ---
Surgery/Procedure H&P Update DATE OF PROCEDURE: July 02, 2023 DATE H&P PERFORMED: 06/24/23 H&P UPDATE INFORMATION: I have reviewed H&P completed within last 30 days, I have examined patient prior to procedure and No changes to prior documentation PREOP DIAGNOSIS: Cystocele stage II, pelvic pain, mixed incontinence PLANNED PROCEDURE: Operation Date: 07/02/23 10:55 Proposed Procedures p Diagnostic laparoscopy 16350, Anterior colporrhaphy 70737, Sling 12570(Not Applicable) - Bernabe Fu MD s Colporrhaphy Anterior(Not Applicable) - Bernabe Fu MD s Sling Single Incision Sling(Not Applicable) - Bernabe Fu MD
--- NOTE | 2023-07-02 11:26 | P.ANESUD_ITS ---
Pre-Anesthetic Update Pre-Anesthetic Assessment: Date of Surgery/Procedure: 07/02/23 Preop Corrie gnosis: Cystocele stage II, pelvic pain, mixed incontinence Proposed Procedure: Operation Date: 07/02/23 10:55 Proposed Procedures p Diagnostic laparoscopy 68756, Anterior colporrhaphy 56545, Sling 62316(Not Applicable) - Bernabe Fu MD s Colporrhaphy Anterior(Not Applicable) - Bernabe Fu MD s Sling Single Incision Sling(Not Applicable) - Bernabe Fu MD Any changes to Pre-Anesthetic Assessment?: No Last Intake: Intake Last Liquid Date 07/01/23 Last Liquid Time 23:00 Last Solid Date 07/01/23 Last Solid Time 19:30 Labs Last 48hrs: Short CBC 07/01/23 Range/Units 11:00 WBC 6.24 (3.29-11.43) 10^ 3/uL Hgb 12.10 (11.27-16.99) g/ dL Hct 38.2 (36-47) % MCV 78.8 L (85-98) fl Plt Count 345 (157-399) 10^3/c mm Neut % (Auto) 53.3 % Neut # (Auto) 3.33 (1.8-7.7) 10^3/u L BMP 07/01/23 11:00 Sodium 137 Potassium 4.1 Chloride 102 Carbon Dioxide 24 BUN 14 Creatinine 0.7 Glucose 134 H Calcium 9.2 Liver Function 07/01/23 Range/Units 11:00 Total Bilirubin 0.6 (0.15-1.2) mg/dL AST 17 (0-32) U/L ALT 22 (0-33) U/L Alkaline Phosphata se 81 (35-105) U/L Albumin 4.0 (3.5-5.2) g/dL Urine 07/02/23 Range/Units 09:21 Urine Color Yellow (Yellow) Urine Appearance Clear (CLEAR) Urine pH 5 (5-7) Ur Specific Gravit y 1.020 (1.005-1.030) Urine Protein Neg (Negative) Urine Glucose (UA) Norm (Normal) Urine Ketones Negative (Negative) Urine Nitrate Negative (Negative) Urine Bilirubin Neg (Negative) Ur Leukocyte Shirley ase Negative (Negative) Blood Bank 07/01/23 11:00 Blood Type A Positive Rho(D) Type Rh positive Antibody Screen Negative Vitals: Temperature 98.2 F 07/02/23 09:28 Temperature Source Temporal Artery S can 07/02/23 09:28 Pulse Rate 85 07/02/23 09:28 Respiratory Rate 16 07/02/23 09:28 Blood Pressure 132/85 07/02/23 09:28 Blood Pressure Sidra n 100 07/02/23 09:28 Pulse Oximetry 96 07/02/23 09:28 Oxygen Delivery Me thod Room Air 07/02/23 09:28 Exam: Pre-Anes Outpt Exam: alert, oriented x 3, clear to auscultation bilaterally and regular rate & rhythm Cardiac Studies: No Data to Display
[2023-07-02] MEDS: lidocaine-epi 2% PF 1:200,000 20 mL SDV INJECTION (12:49)
[2023-07-02] MEDS: BUPivacaine 0.5% INJ 10 mL INJECTION (12:49)
--- NOTE | 2023-07-02 13:28 | W.PM.BPON ---
Date of Procedure: 07/02/23 Surgeon: Bernabe Fu MD Blanking Press Operator(s): Procedure(s) performed: diagnostic laparoscopy, anterior colporrhaphy, mid urethral sling, cystoscopy Findings of the procedure(s): omental adhesions to the vaginal cuff and right side pelvic wall Estimated blood loss: 20 Specimen(s) removed: none Post-operative diagnosis: cystocele, omental adhesions
--- NOTE | 2023-07-02 13:30 | P.OP_ITS ---
Operative Report Date of procedure: July 02, 2023 Pre-op diagnosis: pelvic pain cystocele stage II stress urinary incontinence Post-op diagnosis: same Procedure done: Diagnostic laparoscopy. Lysis of adhesions. Anterior colporrhaphy. Mid urethral sling. Cystoscopy Implants: Coloplast Altis single incision mid urethral sling Surgeon: Bernabe Fu MD Estimated blood loss (mL): 20 IV fluids (mL): 900 Urine output (mL): 100 Complications: none Procedure: After informed consent, the patient was taken to the operating room where gener al anesthesia was administered. The patient was examined under anesthesia and found to have a normal uterus with normal adnexa. She was placed in the dorsal lithotomy position and prepped and draped in sterile fashion. Pre-Procedure Time-Out verifying the correct patient identity, correct procedure verified with consent, correct site and side, correct patient position, availability of correct implants and any special equipment or requirements was performed and acknowledge by the OR team. A speculum was placed in the vagina, and a sponge stick was placed in the vagina. The speculum was removed from the vagina. An intraumbilical incision was made with a scalpel. While tenting up on the abdomen, a Verres needle with sleeve was admitted into the intra-abdominal cavity. A saline drop test was performed and noted to be within normal limits. Pneumoperitoneum was attained with 4 liters of carbon dioxide. The Verres needle was removed. A 5 mm trocar and sleeve were admitted into the abdomen and laparoscopic confirmation of location was achieved, A second incision was made 3 cm above the symphysis pubis, and a 5 mm trocar and sleeve were admitted into the abdomen under direct, laparoscopic visualization without complication. A survey revealed normal abdominal anatomy but pelvic survey shows right side string omental adhesions and omental adhesions to the vaginal cuff. A 5 mm blunt probe was advanced through the second trocar sleeve, and light manipulation of the adhesions was performed. With the LigaSure laparoscopic devised the adhesions were lysed without complications. The Carbon dioxide was allowed to escape from the abdomen. Then proceeded to perform the anterior colporrhaphy in the mid urethral sling. The anterior vaginal mucosa beneath the midurethra was infiltrated with 2% lidocaine with epinephrine. A vertical midline incision was made beneath the midurethra, nearly 1.5 cm length. Careful submucosal dissection was performed bilaterally up to the interior portion of the inferior pubic ramus. The insertion of adductor longus tendon on the patient?s pubic ramus was identified as reference land puma. Palpated the notch along the internal edge of ischiopubic ramus where the adductor longus tendon and the inferior pubic ramus meet. The Altis single incision sling (SIS) was selected. Then the needle of the SIS inserted aiming at the location of this notch. One of the integrated self- fixating tips place onto the needle by sliding it over the end of the needle. The needle/sling assembly was inserted toward the location of identified reference notch making sure that the flat of the handle is perpendicular to the desired path. The needle was tracked along the posterior surface of the ischiopubic ramus until the midline puma on the mesh is approximately at the midline position under the urethra. The needle was removed and the same was repeated on the contralateral side until the appropriate sling tension under the urethra was achieved ensuring that the mesh lays flat. The needle was removed and vaginal incision was closed in a running interlocking fashion with 2-0 Vicryl. An anterior repair was then performed. The medial portion of the anterior v aginal wall was grasped with two Allis clamps and the mucosa was infiltrated with the previous vasopressin solution. The Metzenbaum scissors were used to dissect and undermine a plane medially up to the point of reflexion anteriorly of the bladder. The vaginal mucosa was incised medially. This tissue was then grasped with Esau clamps and dissected away with a combination of sharp and blunt dissection on both sides. A suture of 2-0 vicryl was then used to connect the lateral pubovesical connective tissue on either side together in a series of bites that was repeated in two layers. The excess vaginal mucosa was trimmed and the incision repaired with a locked suture of 0 vicryl. Then the Machado catheter was removed and cystoscope was inserted. The bladder was filled with sterile water. Complete evaluation of the bladder mucosa was performed noting no lacerations, dimpling, tears, bleeding of the mucosa or muscular layers. Both ureteral orifices were identified. Prompt excretion of urine from both ureteral orifices was noted. Cystoscope was withdrawn. The Machado catheter was replaced. Excellent hemostasis was obtained. A vaginal pack is placed overnight as postoperative support for the vaginal tissues after graft placement and closure of vaginal incisions. Sponge, lap, needle, and instrument counts were correct times three. The patient was taken to the recovery room, awake and in stable condition.
--- NOTE | 2023-07-02 14:10 | ANE.PACU2 ---
Inpatient post-anesthesia follow up: Airway intact: Yes Vital signs: Temperature 97.2 F Pulse Rate 78 Respiratory Rate 15 Blood Pressure 125/74 Pulse Oximetry 94 Oxygen Delivery Me thod Room Air Oxygen Flow Rate 1 Fraction of Inspir ed Oxygen Hydration adequate: Yes Nausea and vomiting: No Pain level: 1 Mental status: Baseline
[2023-07-02] MEDS: dextrose 5%-lactated ringers 1,000 ML 125 ML IV (14:50)
[2023-07-02] MEDS: HYDROcodone-acetaminophen 5-325 mg Tablet PO ×2 (14:51→20:34)
[2023-07-02] MEDS: ketorolac 30 mg/mL INJ IVP ×2 (14:51→20:36)
[2023-07-02] MEDS: docusate sodium 100 mg Capsule PO (20:34)
[2023-07-02] MEDS: venlafaxine ER (24HR) 150 mg Capsule PO (20:35)
[2023-07-03 00:10] VITALS: BP 115/74; PULSE 103; RESP 17; TEMP 36.5; O2SAT 96
[2023-07-03] MEDS: dextrose 5%-lactated ringers 1,000 ML 125 ML IV (01:16)
[2023-07-03] MEDS: ketorolac 30 mg/mL INJ IVP (02:15)
[2023-07-03 05:00] VITALS: BP 128/68; PULSE 95; RESP 17; TEMP 36.4; O2SAT 97
--- NOTE | 2023-07-03 05:43 | PC.NURSE ---
Vaginal packing removed at 0500. Pt tolerated procedure well.
[2023-07-03 06:14] LABS: Hematocrit 35.2 % (36-47); Mean Corpuscular HGB Conc 31.3 g/dL (30-55); Platelet Count 233 10^3/cmm (157-399); Red Cell Distribution Width 14.7 % (12.1-15.1)
[2023-07-03] MEDS: pantoprazole DR 40 mg Tablet PO (11:08)
[2023-07-03] MEDS: metoprolol tartrate 50 mg Tablet PO (11:08)
[2023-07-03] MEDS: docusate sodium 100 mg Capsule PO (11:08)
[2023-07-03 11:11] VITALS: BP 124/78; PULSE 99; RESP 17; TEMP 37
--- NOTE | 2023-07-03 12:03 | P.DS_ITS ---
Discharge Providers BUNG REMOVER Date of Admission: 07/02/23 13:35 Date of Discharge: 07/03/23 Attending Provider at Admission: Bernabe Fu MD Attending Provider at Discharge: Bernabe Fu MD Primary Care Provider: Abel Mejia DO Reason for Visit Reason for Visit: G89.29, N81.10, R10.2 Hospital Course Hospital Course Mrs. Martinez 52-year-old female, with a history of pelvic pain and mixed urinary incontinence. Was admitted for planned diagnostic laparoscopy and anterior colporrhaphy with mid urethral sling. During diagnostic laparoscopy, omental adhesions were encountered and there were lysed with laparoscopic sealing device. The anterior colporrhaphy and mid urethral sling were performed without complications. Overnight observation was uneventful. She is afebrile hemodynamically stable postoperative day 1. Tolerating diet well. Ambulating without difficulty. PVR within normal limits. She was counseled regarding pelvic rest for 6 weeks (no sex, no tampons, no vaginal douches). Return to the emergency room if any fever, increased bleeding or pain. Physical Exam Narrative: GA: Alert and oriented ?3. HEENT: WNL. Heart: Regular rate and rhythm. Lungs: Clear to auscultation bilaterally. Abdomen: Bowel sounds present, nontender. 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 Extremities: No edema, no cyanosis, no calves pain. Urinary Catheter Management: [place]: Cath Placed During This Visit: yes, but has since been removed by the nurse Reason for Continuing Indwelling Catheter: Decision to DC Catheter Urinary Catheter Date of Insertion: 07/02/23 Urinary Catheter Time of Insertion: 12:30 Date Urinary Catheter Removed: 07/03/23 Time Urinary Catheter Discontinued: 04:55 History History History 4 Term 3 1 Miscarriages/Ectopic 0 Living Children 4 Discharge Data Studies Completed and Pending Laboratory Results WBC 11.40 10^3/uL (3.29-11.43) 07/03/23 06:05 RBC 4.40 10^6/uL (3.85-5.65) 07/03/23 06:05 Hgb 11.00 g/dL (11.27-16.99) L 07/03/23 06:05 Hct 35.2 % (36-47) L 07/03/23 06:05 MCV 80.0 fl (85-98) L 07/03/23 06:05 MCH 25.0 pg (27-33) L 07/03/23 06:05 MCHC 31.3 g/dL (30-55) 07/03/23 06:05 RDW 14.7 % (12.1-15.1) 07/03/23 06:05 Plt Count 233 10^3/cmm (157-399) 07/03/23 06:05 MPV 10.0 fL (7.4-10.4) 07/03/23 06:05 Neut % (Auto) 53.3 % 07/01/23 11:00 Lymph % (Auto) 33.2 % 07/01/23 11:00 [place] % (Auto) 6.9 % 07/01/23 11:00 Eos % (Auto) 5.0 % 07/01/23 11:00 Baso % (Auto) 1.4 % 07/01/23 11:00 Neut # (Auto) 3.33 10^3/uL (1.8-7.7) 07/01/23 11:00 Lymph # (Auto) 2.1 10^3/uL (0.8-4.8) 07/01/23 11:00 [place] # (Auto) 0.4 10^3/uL (0.2-0.9) 07/01/23 11:00 Eos # (Auto) 0.3 10^3/uL (0.0-0.8) 07/01/23 11:00 Baso # (Auto) 0.1 10^3/uL (0.0-0.1) 07/01/23 11:00 Nucleated RBC % (auto) 0 % 07/01/23 11:00 Nucleated RBCs # 0.0 /100WBC 07/01/23 11:00 Sodium 137 mmol/L (136-145) 07/01/23 11:00 Potassium 4.1 mmol/L (3.5-5.1) 07/01/23 11:00 Chloride 102 mmol/L (98-107) 07/01/23 11:00 Carbon Dioxide 24 mmol/L (22-29) 07/01/23 11:00 Anion Gap 15.1 (5-19) 07/01/23 11:00 BUN 14 mg/dL (6-20) 07/01/23 11:00 Creatinine 0.7 mg/dL (0.5-0.9) 07/01/23 11:00 GFR Calculation 87.9 mL/min (90-130) L 07/01/23 11:00 Glucose 134 mg/dL (65-115) H 07/01/23 11:00 Calculated Osmolality 286 mOsm/kg (285-295) 07/01/23 11:00 Calcium 9.2 mg/dL (8.5-10.5) 07/01/23 11:00 Total Bilirubin 0.6 mg/dL (0.15-1.2) 07/01/23 11:00 AST 17 U/L (0-32) 07/01/23 11:00 ALT 22 U/L (0-33) 07/01/23 11:00 Alkaline Phosphatase 81 U/L (35-105) 07/01/23 11:00 Total Protein 7.2 g/dL (6.6-8.7) 07/01/23 11:00 Albumin 4.0 g/dL (3.5-5.2) 07/01/23 11:00 Globulin 3.2 g/dL (1.3-4.6) 07/01/23 11:00 Urine Color Yellow (Yellow) 07/02/23 09:21 Urine Appearance Clear (CLEAR) 07/02/23 09:21 Urine pH 5 (5-7) 07/02/23 09:21 Ur Specific [place] 1.020 (1.005-1.030) 07/02/23 09:21 Urine Protein Neg (Negative) 07/02/23 09:21 Urine Glucose (UA) Norm (Normal) 07/02/23 09:21 Urine Ketones Negative (Negative) 07/02/23 09:21 Urine Blood Neg (Negative) 07/02/23 09:21 Urine Nitrate Negative (Negative) 07/02/23 09:21 Urine Bilirubin Neg (Negative) 07/02/23 09: Urine Urobilinogen Neg mg/dL (Negative) 07/02/23 09:21 Ur Leukocyte Esterase Negative (Negative) 07/02/23 09:21 Blood Type A Positive 07/01/23 11:00 Rho(D) Type Rh positive 07/01/23 11:00 Antibody Screen Negative 07/01/23 11:00 Procedures Performed Diagnostic laparoscopy. Lysis of adhesions. Anterior colporrhaphy. Mid urethral sling. Cystoscopy Vitals Last Vital Signs Temp 98.6 F 07/03/23 11:11 Pulse 99 07/03/23 11:11 Resp 17 07/03/23 11:11 BP 124/78 07/03/23 11:11 Pulse Ox 97 07/03/23 05:00 O2 Del Method Room Air 07/03/23 11:11 O2 Flow Rate 1 07/02/23 13:57 Results Labs OB ([facility]): Blood Type A Positive 07/01/23 Antibody Screen Negative 07/01/23 Hct 35.2 % (36-47) L 07/03/23 Hgb 11.00 g/dL (11.27-16.99) L 07/03/23 Rho(D) Type Rh positive 07/01/23 Plt Count 233 10^3/cmm (157-399) 07/03/23 TSH 2.03 uIU/mL (0.27-4.20) 04/05/22 Free T4 1.31 ng/dL (0.82-1.77) 12/30/18 Urine Opiates Screen NEGATIVE ng/mL (NEGATIVE) 12/30/18 Ur Barbiturates Screen NEGATIVE ng/mL (NEGATIVE) 12/30/18 Ur Phencyclidine Scrn NEGATIVE ng/mL (NEGATIVE) 12/30/18 Ur Amphetamines Screen NEGATIVE ng/mL (NEGATIVE) 12/30/18 U Benzodiazepines Scrn NEGATIVE ng/mL (NEGATIVE) 12/30/18 Urine Cocaine Screen NEGATIVE ng/mL (NEGATIVE) 12/30/18 U Marijuana (THC) Screen NEGATIVE ng/mL (NEGATIVE) 12/30/18 Micro Urine Specimen 11/14/21 Pap Smear Interpret See note 12/05/20 Discharge Plan Discharge Patient Disposition: Home Condition: Stable Prescriptions: New hydrocodone-acetaminophen 5-325 mg tablet 1 tab PO Q4H PRN (Reason: pain) Qty: 20 0RF acetaminophen 325 mg capsule 325 mg PO Q4H PRN (Reason: fever or pain) Qty: 60 0RF ibuprofen 800 mg tablet 800 mg PO TID PRN (Reason: pain) Qty: 60 0RF oxybutynin chloride 5 mg tablet extended release 24hr 5 mg PO DAILY Qty: 30 0RF Continued pantoprazole 20 mg tablet,delayed release (DR/EC) 20 mg PO DAILY venlafaxine 150 mg capsule,extended release 24hr 150 mg PO BEDTIME ibuprofen 800 mg tablet 800 mg PO Q8H PRN (Reason: Pain) fluticasone propionate [Flonase Allergy Relief] 50 mcg/actuation spray,suspension 2 spray intranasal DAILY PRN (Reason: Allergy Symptoms) Rx Instructions: administer into each nostril metoprolol tartrate 50 mg tablet 50 mg PO Q12H triamterene-hydrochlorothiazid 37.5-25 mg capsule 1 cap PO DAILY Discharge Orders: Discharge Order (Routine); Ordered 07/03/23 Ordered By: Bernabe Fu Referrals: Bernabe Fu MD [Physician] - (follow up appointment 07/17/23 @ 8:00 a.m.) Discharge Diet: Usual diet Discharge Activity: Limit activity as instructed Patient Instructions: Urinary Bladder Suspension (DC), Opioid Safety (DC), Bladder Sling for Women (DC), Anterior Vaginal Repair (DC), Posterior Vaginal Repair (DC), Exploratory Laparoscopy (DC), Lysis of Abdominal Adhesions (DC), OB Discharge Report, OB Food/Drug Interaction Guide, Opioid Safety Activity Restrictions/Additional Instructions: 1. Please call [facility] on next working day to make your post-operative appointment in 2 weeks. 2. Please stay home until you come back to the clinic on first post- hospatilization check up. 3. Please follow instructions on your medications CAREFULLY. 4. If you have abdominal incision, do not cover it unless dressing is necessary because of drainage. OK to shower, but avoid bath. Leave steri-strips until they fall off. If they are still on one week after surgery, you may remove them. 5. If you had vaginal surgery or vaginal repair, Dr. Fu may instruct you to take SITZ bath. 6. Yellow, blood tinged odorous vaginal discharge is usually normal after hysterectomy or vaginal surgeries. 7. No SEXUAL INTERCOURSE, tampons, or douches until you are completely released from the post-operative care. 8. Avoid constipation by eating right and maybe using some Metamucil or Milk of Magnesia. 9. All prescription refills are given during the working hours. Please do no wait till it runs out. Call the clinic at [phone] before your medication runs out. The clinic will get in touch with your doctor to prescribe medications if necessary. 10. Please remain within 40 mile radius from our hospital because emergencies do happen now and then during the post-operative period. 11. If you have stairs at home, take one step at a time slowly and minimize the number of trips. It helps to stay in one floor for the next few days. No lifting except what you can lift by one hand until you are released from the post-operative care. 12. Driving is discouraged until you are well healed. It may be 3-4 weeks before you feel strong enough to drive. You should be able to turn and look through the rear window without pain and you should be able to push the brake pedal very hard without pain before you drive. No fast rules, but SAFETY should be your primary concern. DO NOT drive if you are on sedating medications such as narcotics. 13. Call the clinic (during working hours) to make urgent appointment or go to the Emergency room, if any of the following occurs: i. Vaginal bleeding becomes heavy, more than a period. ii. Incision becomes red and sore, or drains pus. iii. Your TEMPERATURE is over 100.4F or you have chill. iv. IV site becomes red and swollen (a little ``knot?? is usually OK) v. Persistent nausea and vomiting vi. Persistent constipation or diarrhea vii. Rash or allergic reaction to medications. Discharge Attestations BUNG REMOVER Time Spent in Discharge Care*: greater than 30 min Coding Level of Care Code Acute Code for Chg Fwd
[2023-07-03] MEDS: HYDROcodone-acetaminophen 5-325 mg Tablet PO (13:03)
[2023-07-03] MEDS: ibuprofen 800 mg tablet PO (13:04)
[2023-07-03 13:15] VITALS: BP 127/76; PULSE 90; RESP 17; TEMP 36.9
[2023-07-03 13:37] VITALS: BP 127/76; PULSE 90; RESP 17; TEMP 36.9
== END 2023-07-03 13:37 | disposition home or self-care (01) ==
LOC: OBGYN 13:37
PROVIDERS: Admitting Provider Obstetrics & Gynecology; PCP Electrodiagnostic Medicine; Visit Provider Obstetrics & Gynecology
PROC: (CPT 49320; principal; 2023-07-02 10:45)
PROC: 0JQC0ZZ Repair Pelvic Region Subcutaneous Tissue and Fascia, Open Approach (ICD-10-PCS; CPT 57240; 2023-07-02 10:45)
PROC: (CPT 57288; 2023-07-02 10:45)
DX: N81.10 Cystocele, unspecified (principal); N39.3 Stress incontinence (female) (male); I10 Essential (primary) hypertension; K21.9 Gastro-esophageal reflux disease without esophagitis; E66.01 Morbid (severe) obesity due to excess calories; Z68.39 Body mass index [BMI] 39.0-39.9, adult; E78.5 Hyperlipidemia, unspecified
CPT/HCPCS: 57240; 57288; 36415; 51798; 80053; 81003; 85025; 85027; 86850; 86900; C1713; G0378; J0330; J0690; J1100; J1885; J2250; J2405; J2704; J2710; J3010; J3490; J7030; J7040; J7121

== ENCOUNTER 2024-05-19 01:19 | Emergency (ER) | payer MEDICAID, SELFPAY ==
[2024-05-19 01:23] VITALS: BP 148/85; PULSE 94; RESP 18; TEMP 36.6; O2SAT 97; BMI 40.7
--- NOTE | 2024-05-19 02:36 | W.ED.ANIMALB ---
HPI - Animal Bite General: Chief Complaint: Animal Bite Stated Complaint: Dog Bite Left Finger Time Seen by Provider: 05/19/24 02:35 History of Present Illness: Patient presents to the ER after being bit by her own dog on her left index finger. Patient's dog is vaccinated. Patient's last tetanus shot is unknown. Patient is on any blood thinners bleeding is controlled. The lack is on the lateral side of the second digit bleeding is controlled. Related Data Home Medications ?Medication ?Instructions ?Recorded ?Confirmed fluticasone propionate 50 2 spray intranasal DAILY PRN 04/05/22 08/09/23 mcg/actuation nasal Allergy Symptoms spray,suspension (Flonase Allergy Relief) metoprolol tartrate 50 mg tablet 50 mg PO Q12H 04/05/22 08/09/23 venlafaxine 150 mg 150 mg PO BEDTIME 04/05/22 08/09/23 capsule,extended release 24 hr pantoprazole 20 mg tablet,delayed 20 mg PO DAILY 02/15/23 08/09/23 release triamterene 37.5 1 cap PO DAILY swelling 07/01/23 08/09/23 mg-hydrochlorothiazide 25 mg capsule Previous Rx's ?Medication ?Instructions ?Recorded acetaminophen 325 mg capsule 325 mg PO Q4H PRN fever or pain 07/03/23 #60 caps oxybutynin chloride 5 mg 5 mg PO DAILY Urinary incontinence 07/03/23 tablet,extended release 24 hr #30 tabs Allergies Allergy/AdvReac Type Severity Reaction Status Date / Time amoxicillin Allergy ADR-Cramping Verified 05/19/24 01:30 of the Muscles [id number] Reductase Allergy ADR-Nausea Verified 08/09/23 15:11 Inhibitor Review of Systems General: Reports: 10 or more systems reviewed and unremarkable except in HPI and below PFSH ED PFSH: Medical History Uterine prolapse Endometriosis Pelvic pain Statin intolerance Hyperlipidemia Anxiety and depression Chronic GERD Essential hypertension Surgical History History of endometrial ablation (~2010) performed 2 weeks after the laparoscopy History of laparoscopy (~2010) diagnosed with endometriosis H/O: hysterectomy (~11/2021) LAVH, BSO, PERINEORRAPHY, CYSTOSCOPY. Performed by Estella at [facility]. Benign pathology. H/O knee surgery History of appendectomy Family History Other Adopted Social History Smoking and tobacco/nicotine status: never used tobacco/nicotine Physical Exam Const: COMMON NORMALS: no acute distress, average body habitus, patient oriented x3, no limitations, healthy appearing, alert and well nourished HENMT: COMMON NORMALS: normocephalic, atraumatic, hearing grossly normal bilaterally, external ears normal, Normal external nose present, moist oral mucous membranes and oropharynx normal HEAD & SCALP: normocephalic and atraumatic NOSE: Normal external nose present EXTERNAL EAR: Yes external ears normal Neck/C-Spine: COMMON NORMALS: no JVD Chest: COMMONS NORMALS: normal inspection of the chest and normal palpation of entire chest wall Resp: COMMON NORMALS: normal respiratory effort, No retractions, No use of accessory muscles and clear to auscultation bilaterally AUSCULTATION: clear to auscultation bilaterally Cardio: COMMON NORMALS: no JVD, regular rate, regular rhythm, S1 normal heart sound present, S2 normal heart sound present, No gallops present (Cardio), No clicks present (Cardio), No murmurs present (Cardio) and No rub (Cardio) RATE: regular rate RHYTHM: regular rhythm HEART SOUNDS: S1 normal heart sound present and S2 normal heart sound present Neuro: COMMON NORMALS: patient oriented x3 SENSORIUM/ORIENTATION: Yes alert Skin: NARRATIVE SKIN EXAM: Superficial laceration probably 1 cm long on the left lateral surface of second digit. Does not Very much, bleeding is controlled, neurovascularly tendon is intact. Course Vital Signs: Vital signs: Vital Signs Temperature 97.9 F 05/19/24 01:23 Pulse Rate 94 05/19/24 01:23 Respiratory Rate 18 05/19/24 01:23 Blood Pressure 148/85 05/19/24 01:23 Pulse Oximetry 97 05/19/24 01:23 MDM - Animal Bite Medical Decision Making We will cleanse the wound exquisitely, place some Dermabond on the wound to keep it in place placed the finger in a splint. Update the person's DTaP and discharge at home. Medical Records I reviewed the patient's medical records. Lab Data I reviewed the patient's lab results. No radiology studies performed this visit Discharge Plan Discharge Patient Disposition: Home Clinical Impression: Bite by animal Condition: Stable Prescriptions: No Action pantoprazole 20 mg tablet,delayed release (DR/EC) 20 mg PO DAILY venlafaxine 150 mg capsule,extended release 24hr 150 mg PO BEDTIME fluticasone propionate [Flonase Allergy Relief] 50 mcg/actuation spray,suspension 2 spray intranasal DAILY PRN (Reason: Allergy Symptoms) Rx Instructions: administer into each nostril metoprolol tartrate 50 mg tablet 50 mg PO Q12H triamterene-hydrochlorothiazid 37.5-25 mg capsule 1 cap PO DAILY acetaminophen 325 mg capsule 325 mg PO Q4H PRN (Reason: fever or pain) Qty: 60 0RF oxybutynin chloride 5 mg tablet extended release 24hr 5 mg PO DAILY Qty: 30 0RF Discharge Orders: Discharge ED (Routine); Ordered 05/19/24 Ordered By: Benigno Jameson Referrals: Abel Mejia DO [Primary Care Provider] - 1 week Patient Instructions: Animal Bite (ED) Activity Restrictions/Additional Instructions: Thank you for choosing [facility] for your healthcare needs today. Please realize that you were seen in the emergency department and that we are providing you with an emergency medical screening exam and this may not be a complete and all exclusive of all testing and/or medical workup we may need to determine your element or severity of your illness. It is very important that you follow-up as instructed with your primary care provider or specialist for the additional evaluation and to discuss your medical treatment plan. You may return to the emergency department should you have concerns or if your condition changes or worsens in any way. Print Language: Belarusian Coding Level of Care Code ED Sales Account Representative for Caro Armstrong
[2024-05-19 02:39] VITALS: BP 147/73; PULSE 97; RESP 16; O2SAT 97
[2024-05-19] MEDS: tetanus-dipt-pertussis 0.5 mL SDV IM (02:41)
[2024-05-19 03:01] VITALS: BP 154/82; PULSE 97; O2SAT 98
== END 2024-05-19 03:00 | disposition home or self-care (01) ==
PROVIDERS: Emergency Provider Emergency Medicine; PCP Electrodiagnostic Medicine
DX: S61.215A Laceration without foreign body of left ring finger without damage to nail, initial encounter (principal); E78.5 Hyperlipidemia, unspecified; I10 Essential (primary) hypertension; W54.0XXA Bitten by dog, initial encounter; Z23 Encounter for immunization
CPT/HCPCS: 90471; 90715; 99283

== ENCOUNTER 2024-06-11 13:55 | Outpatient (CLI) | payer MEDICAID, SELFPAY ==
--- NOTE | 2024-06-11 14:00 | MM_ITS ---
WS: [id number] BILATERAL 3D TOMOSYNTHESIS DIGITAL SCREENING MAMMOGRAPHY WITH CAD CLINICAL INFORMATION: SCREENING HISTORY: Screening mammogram. No current complaints. COMPARISON: 2021 TECHNIQUE: Bilateral CC and MLO views. FINDINGS: Scattered fibroglandular densities bilaterally. No suspicious focal mass, asymmetry, calcifications, or architectural distortion. No evidence of malignancy. MM/MM scr BI tomosynthesis [id number] IMPRESSION: DENSITY: There are scattered areas of fibroglandular density. BI-RADS: 1 - Negative. FOLLOW UP: 1 Year Follow-up Recommend return to annual screening mammography.
== END 2024-06-11 13:56 | disposition home or self-care (01) ==
LOC: MOBLMAM 13:56
PROVIDERS: PCP Electrodiagnostic Medicine; Visit Provider Electrodiagnostic Medicine
DX: Z12.31 Encounter for screening mammogram for malignant neoplasm of breast (principal); R92.323 Mammographic fibroglandular density, bilateral breasts
CPT/HCPCS: 77063; 77067